=== PATIENT | male | born 1945 | race Caucasian/White ===

== ENCOUNTER 2019-06-12 14:37 | Inpatient (IN) | payer MEDICARE, OTHER, SELFPAY ==
[2019-06-12] VITALS (21 sets, daily range): BP systolic 118–181; BP diastolic 58–97; PULSE 58–96; RESP 16–27; TEMP 36.3–37; O2SAT 93–100; BMI 27.1; BMI 26.5
--- NOTE | ~2019-06-12 | XR_ITS ---
EXAMINATION: XR chest 2V DATE: 06/12/2019 15:05 INDICATION: Chest pain. TECHNIQUE: Frontal and lateral views of the chest were obtained. COMPARISON: None. FINDINGS: The chest demonstrates clear lungs without pneumonia, pleural effusion, or pneumothorax. Th e heart size is normal. IMPRESSION: 1. No acute cardiopulmonary disease. Reviewed, dictated and finalized at location A. ESS TRACK VEHICLE SUPERVISOR
--- NOTE | 2019-06-12 14:45 | ECG_ITS ---
Measurements Intervals [place] Rate: 79 P: 33 GA: 209 QRS: -36 QRSD: 99 T: 127 QT: 364 QTc: 420 Interpretive Statements SINUS RHYTHM LEFT AXIS DEVIATION LEFT VENTRICULAR HYPERTROPHY AND ST-T CHANGE DELAYED PRECORDIAL R/S TRANSITION BASELINE WANDER- I, III BORDERLINE ECG Electronically Signed On 06-12-2019 14:55:34 [employer]UMBER TALLIER by Sukhjinder Jara D.O.
[2019-06-12 14:54] LABS: Basophils Percent Auto 0.5 % (0.2-1.2); Eosinophils Absolute Auto 0.2 K/mm3 (0-0.3); Eosinophils Percent Auto 2.3 % (0-4.4); Hematocrit 46.9 % (42.0-52.0); Hemoglobin 15.7 g/dL (14.0-18.0); Immature Granulocyte Absolute 0.03 K/mm3 (0.00-0.031); Immature Granulocyte Percent A 0.4 % (0-0.5); Lymphocytes Absolute Auto 1.46 K/mm3 (0.9-3.2); Lymphocytes Percent Auto 18.5 % (18.3-44.2); Mean Corpuscular HGB Conc 33.5 g/dl (32-36); Mean Corpuscular Hemoglobin 29.6 pg (26-34); Mean Corpuscular Volume 88.5 fl (80-100); Mean Platelet Volume 10.1 fl (7.4-10.4); Monocytes Absolute Auto 0.9 K/mm3 (0.1-0.6); Monocytes Percent Auto 11.3 % (2.6-8.5); Neutrophils Absolute Auto 5.3 K/mm3 (1.3-6.7); Platelet Count Result 199 k/mm3 (150-375); Red Cell Distribution Width 13.5 % (11.5-14.5); White Blood Count 7.9 K/mm3 (4.5-10.0)
[2019-06-12 15:04] LABS: INR 0.9
[2019-06-12 15:07] LABS: Blood Urea Nitrogen 19 mg/dL (9-20); Calcium 9.7 mg/dL (8.4-10.2); Carbon Dioxide 25 mmol/L (22-30); Chloride 101 mmol/L (98-107); Estimated CRCL calculation 46 ml/min; Estimated Glomerular Filt Rate > 60; Glucose 160 mg/dL (75-110); Potassium 3.8 mmol/L (3.4-5.0); Sodium 139 mmol/L (137-145)
[2019-06-12 15:22] LABS: Troponin I 0.054 ng/mL (0.000-0.034)
--- NOTE | 2019-06-12 15:35 | ED.CHESTPAIN ---
HPI - Chest Pain General Chief Complaint: Chest Pain Stated Complaint: CP Time Seen by Provider: 06/12/19 15:34 Source: patient and RN notes reviewed Mode of arrival: ambulatory Limitations: no limitations History of Present Illness HPI narrative: Pt is a 74 y/o male with a Hx of HLD and HTN, who presents to the ED with c/o constant lt sided chest pain starting yesterday morning. He describes his pain as squeezing, and notes that his pain is alleviated with laying down and resting. Pt states that he was able to walk around his neighborhood with no increase in his pain. He currently rates his CP at 5/10. Pt reports dizziness accompanying his pain, but denies any SOB or other symptoms. He notes that he has no Hx of similar episodes of pain, and denies any PMHx of VA, CVA, or TIA. MD complaint: chest pain Onset (ago): day(s) (1) Timing of current episode: constant Prior episodes: No Pain location: left chest Pain radiation: none Pain scale (0-10): 5 Quality: other (squeezing) Relieving factors: rest Associated symptoms: other (dizziness) Risk Factors Coronary artery disease risk factors: hyperlipidemia and hypertension Related Data Allergies Allergy/AdvReac Type Severity Reaction Status Date / Time loratadine Allergy Unknown Verified 01/24/17 14:50 Review of Systems Review of Systems: All systems reviewed & are unremarkable except as noted in HPI and below Cardiovascular: Cardiovascular: Reports chest pain (lt sided chest pain) Respiratory: Respiratory: Denies dyspnea Neurologic: Reports dizziness PMFSH Past Medical History Medical History HLD (hyperlipidemia) HTN (hypertension) Kidney stones Surgical History Surgical History Hx of eye surgery Family History Family History (Updated 07/31/16 @ 09:51 by DOCTOR UNKNOWN) Father Family history of malignant neoplasm Mother Family history of malignant neoplasm Social History Social History Smoking status: Former smoker Smoking end date: 05/14/72 Alcohol intake: current Comments PCP is Dr. Hunt. Exam Narrative: Exam Narrative: General appearance: Well-developed, well-nourished Skin: Normal color Head: Normocephalic, nontraumatic Eyes: Clear conjunctiva ENT: Oropharynx normal, ears normal, nose normal Neck: Supple, nontender Chest and respiratory: Airway patent, no respiratory distress, no accessory muscle use Heart: Regular rate/rhythm Abdomen: Soft, nontender, no organomegaly, quiet bowel sounds Vascular: Normal peripheral pulses, normal capillary refill. Musculoskeletal: Normal range of motion, nontender back Neurologic: Alert and oriented ?3, DISCOUNT CLERK is normal as tested, no gross motor deficit Course Course Emergency Course: Improving. Currently chest pain is 0 out of 10 after having aspirin, heparin bolus, Lopressor 25 mg orally, nitroglycerin sublingual x3. Patient will be admitted to IMCU, in case of recurrent chest pain probably needs to go to cardiac cath. Consultations Consultation #1: Discussed case with executive compensation analyst, Dr. Mehta. He accepted the pt. Date: 06/12/19 Time: 15:45 Vital Signs Vital signs: Vital Signs Temperature 37.0 C 06/12/19 14:45 Pulse Rate 80 06/12/19 14:45 Respiratory Rate 20 06/12/19 14:45 Blood Pressure 171/78 H 06/12/19 14:45 Pulse Oximetry 96 06/12/19 14:45 Temperature 37.0 C 06/12/19 14:45 Pulse Rate 88 06/12/19 16:31 Respiratory Rate 23 H 06/12/19 16:31 Blood Pressure 118/65 06/12/19 16:31 Pulse Oximetry 94 06/12/19 16:31 MDM - Chest Pain M
[2019-06-12] MEDS: ASPIRIN 81 MG CHEWABLE TABLET 324 MG PO (15:42)
--- NOTE | 2019-06-12 15:59 | PM.CNCAR ---
Assessment and Plan Assessment and plan (1) Non-ST elevation myocardial infarction (NSTEMI): Code(s): I21.4 - Non-ST elevation (NSTEMI) myocardial infarction Status: Acute Assessment and Plan: He has slight elevation of troponin, has history of crescendo angina, indicative of non ST elevation myocardial infarction. Will start aspirin and heparin, blood pressure controlled, if he gets pain-free completely with nitroglycerin and heparin, then will plan cardiac catheterization at later stage otherwise he continued to have active chest pain will plan on doing cardiac catheterization soon. Will get echocardiogram to evaluate current status of left ventricular systolic function, and look for any other structural heart disease. (2) HTN (hypertension): Code(s): I10 - Essential (primary) hypertension Status: Acute Assessment and Plan: Will add metoprolol for better blood pressure control as well as nitroglycerin (3) HLD (hyperlipidemia): Code(s): E78.5 - Hyperlipidemia, unspecified Status: Acute Assessment and Plan: He is on simvastatin will check lipid profile and treat accordingly Thank you for allowing me to participate in this patient's care, I will be following up with you. Please do not hesitate to call me for any other inquiry History of Present Illness History of Present Illness Consult date/time: 06/12/19 15:59 Chief complaint is chest pain. 74-year-old gentleman with history of hypertension, dyslipidemia, and past history of smoking, came to the hospital because of chest pain. He stated he started having heaviness the chest starting yesterday was mostly left-sided pain with radiation to left shoulder. Was not as intense earlier but subsequently as he went to help a friend take care of stuff at home he started having worsening pain since then by the time he arrived to the hospital was having active pain upon my arrival he was given nitroglycerin which is subsequently relieved his pain. EKG showed nonspecific inferior T-wave flattening, and slight ST depression in inferior leads, 1st troponin showed slight elevation. He has history of hypertension for which he stated that he is taking medication, and has history of dyslipidemia for which he takes simvastatin. He had 1 episode of lightheadedness and dizziness along with the chest pain, and 1 episode of diaphoresis. No known history of coronary artery disease, no history of previous myocardial infarction Reason For Visit: CP Review of Systems Constitutional: Constitutional: Reports fatigue, Reports lethargy and Reports weakness Cardiovascular: Cardiovascular: Reports chest pain, Denies pedal edema and Reports lightheadedness Respiratory: Respiratory: Reports dyspnea PMFSH Past Medical History Medical History HLD (hyperlipidemia) HTN (hypertension) Kidney stones Surgical History Surgical History Hx of eye surgery Family History Family History Father Family history of malignant neoplasm Mother Family history of malignant neoplasm Social History Social History Smoking status: Former smoker Smoking end date: 05/14/72 Alcohol intake: current Meds Home Medications and Allergies Home Medications Medication Instructions Recorded Confirmed Type simvastatin 40 mg tablet 40 mg PO DAILY #90 tablet 03/24/19 Rx lisinopril 20 mg tablet 20 mg PO BID #90 tablet 05/01/19 Rx Allergies Allergy/AdvReac Type Severity Reaction Status Date / Time loratadine Allergy Unknown Verified 01/24/17 14:50 Vital Signs Vital Signs - 24 hr 06/12/19 14:45 Temperature 37.0 C Pulse Rate 80 Respiratory Rate 20 Blood Pressure 171/78 H Pulse Oximetry 96 Exam Narrative: Exam Narrative: Awake alert or
[2019-06-12] MEDS: METOPROLOL TARTRATE 50 MG TAB 25 MG PO (16:01)
[2019-06-12] MEDS: NITROGLYCERIN SL 0.4 MG TABLET SUBLINGUAL ×3 (16:02→16:24)
--- NOTE | 2019-06-12 16:09 | PC.NURSE ---
Pt given one ntg, pain was decreased from 5/10 to 3/10.
[2019-06-12] MEDS: HEPARIN SODIUM 5,000 UNITS/ML VIAL 5000 UNITS IV PUSH (16:10)
--- NOTE | 2019-06-12 16:24 | PC.NURSE ---
CP decreased to 1/[address] Costello made aware. v.o. to give 3rd NTG for continuing cp 05/23.
--- NOTE | 2019-06-12 16:47 | PC.NURSE ---
Pt is painfree at present time, after [address] Costello made aware and to bedside to speak with patient.
[2019-06-12 18:03] LABS: Cholesterol 147 mg/dL (0-200); HDL Direct 32 mg/dL; Triglycerides 71 mg/dL (<150); Troponin I 0.064 ng/mL (0.000-0.034)
[2019-06-12 18:13] LABS: LDL Cholesterol Direct 103 mg/dL
--- NOTE | 2019-06-12 18:13 | PC.NURSE ---
Call to IMU, floor unable to take report.
--- NOTE | 2019-06-12 19:58 | ADMGEN ---
This patient, Jose Adair, was admitted to IMU Room 232-01 at 1831. Patient/family oriented to hospital policies and general routines including ID bracelet, bed and alarms, visiting hours, pain management, procedures, bathroom and other care routines, personal items, smoking policy, room service/diet, and visiting hours. Valuables list has been completed. Information on how to activate the Rapid Response Team has been discussed. Patient/Family are encouraged to report perceived risks to care and to ask questions if they do not understand what they are told or what they should do.
[2019-06-12] MEDS: SODIUM CHLORIDE 0.9% IV 500 ML 100 ML IV CONT (21:43)
[2019-06-12 21:47] LABS: Troponin I 0.071 ng/mL (0.000-0.034)
[2019-06-12] MEDS: HEPARIN SODIUM 5,000 UNITS/ML VIAL 4000 UNITS IV PUSH (22:51)
--- NOTE | 2019-06-12 22:51 | PM.IMHP ---
H&P: HPI History of Present Illness Chief complaint: And STEMI Narrative: Jose Adair is a 74 year old male who has a past medical history of hypertension and hyperlipidemia. The patient has had no prior history of any heart disease. The patient stated that on Sunday he had this left shoulder pain and went to the chiropractor and felt very relaxed after that. Then the patient noticed that he had some left upper chest pain after he went to the chiropractor. The patient stated with activity had chest pain and would be relieved with rest. He had no shortness of breath or diaphoresis. Did not radiate down his arm. He is not diabetic. patient's troponins were 0.054, 0.064, 0.071. Respectively. Patient was given IV bolus of heparin in the emergency room. Lopressor in the emergency room as well as an aspirin. Patient still continues to have some mild chest pressure. EKG was read as left axis deviation. Baseline wander lead 1 and 3. Borderline EKG. Date of service 06/12/2019 Review of Systems Review of Systems: Narrative: No fever no chills no cough. No shortness of breath. Chest pain is relieved with rest. All systems reviewed & are unremarkable except as noted in HPI and below Constitutional: Constitutional: Reports as per HPI and Reports no additional constitutional complaints Eyes: Eyes: Reports as per HPI and Reports no additional eye complaints Comments: Retinal transplant both eyes ENT: Reports system reviewed and no additional complaints, except as documented and Reports Normal hearing present Cardiovascular: Cardiovascular: Reports no additional cardiovascular complaints Respiratory: Respiratory: Reports no additional respiratory complaints and Reports no additional respiratory complaints Gastrointestinal: Gastrointestinal: Reports as per HPI and Reports no additional gastrointestinal complaints Musculoskeletal: Musculoskeletal: Reports no additional musculoskeletal complaints Integumentary/Breasts: Skin/Breast: Reports system reviewed and no additional complaints, except as docu and Reports as per HPI Neurologic: Reports system reviewed and no additional complaints, except as documented, Reports as per HPI and Reports Normal hearing present Psychiatric: Psychiatric: Reports no additional psychiatric complaints and Reports as per HPI Endocrine: Endocrine: Reports no additional endocrine complaints Hematologic/Lymphatic: Hematologic/Lymphatic: Reports no additional hematologic/lymphatic complaints Allergic/Immunologic: Allergic/Immunologic: Reports no additional allergic/immunologic complaints [facility] Past Medical History Medical History (Updated 06/12/19 @ 22:57 by Libertad Mae NP) HLD (hyperlipidemia) HTN (hypertension) Kidney stones 1 was extracted and the other 1 lithotripsy. Surgical History Surgical History (Updated 06/12/19 @ 22:57 by Libertad Mae NP) Cataract extraction status Both eyes Hx of eye surgery History of retinal transplant Family History Family History (Updated 06/12/19 @ 22:57 by Libertad Mae NP) Father Family history of malignant neoplasm Some type of blood cancer Mother Family history of malignant neoplasm Lung cancer Social History Social History (Updated 06/12/19 @ 23:00 by Libertad Mae NP) Social History: Patient lives with his Juana. She is his power materials and corrosion engineer. He desires to be a full code. He has 4 children. He is retired from [employer]. Patient stated he quit smoking in the 70s no alcohol are are street drugs Smoking packs per day: 0.5 Smoking cigarettes per day: 10.0 Years smoked: 10 Smoking pack-years: 5.00 Smoking status: Light tobacco smoker Tobacco type: cigarettes Second hand tobacco smoke exposure: No Smoking end date: 05/14/72 Alcohol intake: current Drinks per week: 1 Substance use: never Substance use type: does not use Living arrangements: with family Occupation/Educat
[2019-06-12] MEDS: HEPARIN SOD/D5W 100 UNITS/ML 25,000 UNITS/250 ML BAG 9 UNITS IV CONT (22:52)
[2019-06-13] VITALS (19 sets, daily range): BP systolic 115–176; BP diastolic 42–82; PULSE 62–91; RESP 16–22; TEMP 36.2–36.8; O2SAT 93–99
--- NOTE | 2019-06-13 | ECHO_ITS ---
Patient Info Name: Jose Adair Age: 74 years : 1945 Gender: Male Ht: 66 in Wt: 166 lbs BSA: 1.89 m2 HR: 70 bpm BP: 115 / 42 mmHg Exam Date: 06/13/2019 11:37 AM Exam Location: [facility] Pulmonary Exam Room: [facility] Patient Status: Inpatient Admit Date: 06/12/2019 Staff Ordering Physician: Rafa Mehta MD Saddle Lining Stitcher: Karen Diaz RDCS Attending Provider: Rosa Coronel PA-C Exam Type: CA echo doppler color flow Study Info Indications - chest pain Complete two-dimensional, color flow and Doppler transthoracic echocardiogram is performed. Summary 1. Technically difficult study with limited views. 2. The mitral valve has thickened leaflets. 3. Grade I diastolic dysfunction of the left ventricle (impaired relaxation pattern). 4. Left ventricular wall thickness is borderline increased. 5. There is trace mitral valve regurgitation. 6. There is mild aortic valve sclerosis. 7. There is trace aortic valve regurgitation. 8. There is mild aortic valve stenosis with a peak velocity of 239 cm/s, mean gradient of 12 mmHg, and aortic valve area of 1.6 cm2. 9. Left ventricular chamber dimension is normal. 10. Left ventricular systolic function is normal with an estimated ejection fraction of 5560.0 %. Left Ventricle Grade I diastolic dysfunction of the left ventricle (impaired relaxation pattern). Left ventricular wall thickness is borderline increased. Left ventricular chamber dimension is normal. Left ventricular systolic function is normal with an estimated ejection fraction of 5560.0 %. Right Ventricle Right ventricle Empty are normal. Right ventricular systolic function is normal. Left Atria Left atrial chamber dimension is normal. Right Atria Right atrial chamber dimension is normal. Aortic Valve There is mild aortic valve sclerosis. Aortic valve is not well visualized. There is trace aortic valve regurgitation. There is mild aortic valve stenosis with a peak velocity of 239 cm/s, mean gradient of 12 mmHg, and aortic valve area of 1.6 cm2. Pulmonic Valve Pulmonary valve is not well visualized. Mitral Valve The mitral valve has thickened leaflets. There is trace mitral valve regurgitation. Tricuspid Valve The tricuspid valve is structurally and functionally normal by two-dimensional, color flow Doppler and Doppler interrogation. Empty pulmonary hypertension, estimated pulmonary arterial systolic pressure is 34 mmHg. Pericardium/Pleural Pericardium is normal in appearance with no evidence for significant pericardial effusion. Left Ventricular Outflow Tract Name Value Normal LVOT 2D LVOT Diameter 2.1 cm LVOT Doppler LVOT Peak Gradient 4 mmHg LVOT Mean Gradient 3 mmHg LVOT VTI 24 cm LVOT VTI/AV VTI Ratio 0.5 LVOT Stroke Volume 82 ml LVOT CO 15.9 l/min LVOT CI 8.4 l/min/m2 Pulmonic Valve
[2019-06-13] MEDS: SODIUM CHLORIDE 0.9% IV 500 ML 100 ML IV CONT (02:37)
[2019-06-13 04:47] LABS: Basophils Absolute Auto 0.1 K/mm3 (0.0-0.1); Basophils Percent Auto 0.6 % (0.2-1.2); Eosinophils Absolute Auto 0.2 K/mm3 (0-0.3); Eosinophils Percent Auto 2.9 % (0-4.4); Hematocrit 45.2 % (42.0-52.0); Hemoglobin 14.8 g/dL (14.0-18.0); Immature Granulocyte Absolute 0.04 K/mm3 (0.00-0.031); Immature Granulocyte Percent A 0.5 % (0-0.5); Lymphocytes Absolute Auto 1.93 K/mm3 (0.9-3.2); Lymphocytes Percent Auto 24.7 % (18.3-44.2); Mean Corpuscular HGB Conc 32.7 g/dl (32-36); Mean Corpuscular Hemoglobin 29.5 pg (26-34); Mean Platelet Volume 10.3 fl (7.4-10.4); Monocytes Percent Auto 12.4 % (2.6-8.5); Neutrophils Absolute Auto 4.6 K/mm3 (1.3-6.7); Neutrophils Percent Auto 58.9 % (45.5-73.1); Platelet Count Result 195 k/mm3 (150-375); Red Blood Count 5.02 M/mm3 (4.6-6.20); Red Cell Distribution Width 13.5 % (11.5-14.5); White Blood Count 7.8 K/mm3 (4.5-10.0)
[2019-06-13 04:59] LABS: Partial Thromboplastin Time 70.2 SECONDS (22.3-36.8)
[2019-06-13 05:10] LABS: Alanine Aminotransferase 27 U/L (4-50); Albumin Level 3.8 g/dL (3.5-5.1); Alkaline Phosphatase 48 U/L (38-126); Aspartate Amino Transferase 21 U/L (17-59); Bilirubin,Total 1.3 mg/dL (0.2-1.3); Blood Urea Nitrogen 19 mg/dL (9-20); Calcium 9.1 mg/dL (8.4-10.2); Carbon Dioxide 27 mmol/L (22-30); Chloride 102 mmol/L (98-107); Cholesterol 138 mg/dL (0-200); Estimated CRCL calculation 42 ml/min; Estimated Glomerular Filt Rate 59; Glucose 112 mg/dL (75-110); HDL Direct 30 mg/dL; Magnesium 1.9 mg/dL (1.6-2.3); Potassium 4.3 mmol/L (3.4-5.0); Sodium 138 mmol/L (137-145); Triglycerides 147 mg/dL (<150)
[2019-06-13 05:20] LABS: LDL Cholesterol Direct 99 mg/dL
[2019-06-13] MEDS: HEPARIN SODIUM 5,000 UNITS/ML VIAL 3000 UNITS IV PUSH (05:45)
--- NOTE | 2019-06-13 07:42 | WPDMODSED ---
Moderate Sedation Note-Pt Data Patient Data Allergies Allergy/AdvReac Type Severity Reaction Status Date / Time loratadine Allergy Unknown Verified 01/24/17 14:50 Home Medications Medication Instructions Recorded Confirmed Type simvastatin 40 mg tablet 40 mg PO DAILY #90 tablet 03/24/19 06/12/19 Rx Allergy Relief (fluticasone) 50 mcg EACHNARE BID 06/12/19 06/12/19 History lisinopril-hydrochlorothiazide 1 tab-cap PO QAM 06/12/19 06/12/19 History prednisolone acetate See Rx Instructions .ROUTE .COMPLEX 06/12/19 06/12/19 History Current Medications: Active Medications Aspirin (Aspirin Chewable) 81 mg PO DAILY@0800 [facility] Fluticasone Propionate (Flonase 0.05% Nasal [place]) 1 spray NASAL BID [facility] Heparin Sodium (Porcine) (Heparin Sodium) 4,000 units IV PUSH PRN PRN PRN Reason: aPTT less than 55 seconds Heparin Sodium (Porcine) (Heparin Sodium) 3,000 units IV PUSH PRN PRN PRN Reason: aPTT 55 - 70 seconds Last Admin: 06/13/19 05:45 Dose: 3,000 units Documented by: Sodium Chloride (Normal Saline Iv) 500 mls @ 100 mls/hr IV CONT .Q5H ANISH Last Infusion: 06/13/19 05:48 Dose: 100 mls/hr Documented by: Heparin Sodium/Dextrose (Heparin Sodium/D5w 100 Units/Ml) 25,000 units in 250 mls @ 11 mls/hr IV CONT .[id number] ANISH; Protocol Last Titration: 06/13/19 05:48 Dose: 1,100 units/hr, 11 mls/hr Documented by: Nitroglycerin (Nitrostat Subl 0.4 Mg (1/150)) 0.4 mg SUBLINGUAL Q5MIN PRN PRN Reason: Chest Pain Last Admin: 06/12/19 16:24 Dose: 0.4 mg Documented by: Ondansetron HCl (Zofran Inj) 4 mg IV PUSH Q4H PRN PRN Reason: Nausea Prednisolone Acetate (Pred Forte) 1 drop EACH EYE Q48H [facility] Simvastatin (Zocor) 40 mg PO DAILY [facility] Sedation/Anesthesia: No previous sedation/anesthesia problems (including family history). [facility] Past Medical History Medical History (Updated 06/12/19 @ 22:57 by Libertad Mae NP) HLD (hyperlipidemia) HTN (hypertension) Kidney stones 1 was extracted and the other 1 lithotripsy. Surgical History Surgical History (Updated 06/12/19 @ 22:57 by Libertad Mae NP) Cataract extraction status Both eyes Hx of eye surgery History of retinal transplant Family History Family History (Updated 06/12/19 @ 22:57 by Libertad Mae NP) Father Family history of malignant neoplasm Some type of blood cancer Mother Family history of malignant neoplasm Lung cancer Social History Social History (Updated 06/12/19 @ 23:00 by Libertad Mae NP) Social History: Patient lives with his Juana. She is his power research attorney. He desires to be a full code. He has 4 children. He is retired from [employer]. Patient stated he quit smoking in the 70s no alcohol are are street drugs Smoking packs per day: 0.5 Smoking cigarettes per day: 10.0 Years smoked: 10 Smoking pack-years: 5.00 Smoking status: Light tobacco smoker Tobacco type: cigarettes Second hand tobacco smoke exposure: No Smoking end date: 05/14/72 Alcohol intake: current Drinks per week: 1 Substance use: never Substance use type: does not use Living arrangements: with family Occupation/Education: retired Gender identity (if verbalized by the patient): Male Spiritual care concerns: No Agree to blood products: Yes Mod Sed Physical Exam Physical Exam Pre Procedural Exam: Normal: Appearance, Eyes, Ears, Nose, Neck, Throat, Airway, Lungs, Heart Size, Heart Rate, Heart Rhythm, Neuro Exam, Abdomen, Liver, Kidneys, Spleen, Breasts, Genitalia, Extremities and Skin Hours since solid foods: 8 Hours since liquid intake: 8 Internal Medicine - PN: Obj Da Vital Signs Vital Signs: Vital Signs - 24 hr 06/12/19 14:45 06/12/19 15:32 06/12/19 15:46 Temperature 37.0 C Pulse Rate 80 77 81 Respiratory Rate 20 26 H 24 H Blood Pressure 171/78 H 181/97 H Pulse Oximetry 96 97 98 06/12/19 16:00 06/12/19 16:01 06/12/19 16:03 Temperature Pulse Rate 78 87 81 Resp
--- NOTE | 2019-06-13 08:09 | PM.PNCARD ---
Progress Note: A&P Assessment and Plan (1) Non-ST elevation myocardial infarction (NSTEMI): Code(s): I21.4 - Non-ST elevation (NSTEMI) myocardial infarction Status: Acute Assessment and Plan: cardiac catheterization done today showed totally occluded RCA with collaterals, severe three-vessel coronary disease with significant lesions in the LAD diagonal left circumflex obtuse marginal. Has normal left ventricular systolic function, he would benefit from coronary bypass surgery, will resume heparin shortly and transferred to [facility] for surgery. (2) HTN (hypertension): Code(s): I10 - Essential (primary) hypertension Status: Acute Assessment and Plan: Will add metoprolol for better blood pressure control as well as nitroglycerin (3) HLD (hyperlipidemia): Code(s): E78.5 - Hyperlipidemia, unspecified Status: Acute Assessment and Plan: He is on simvastatin will check lipid profile and treat accordingly Subjective Date/time seen: 06/13/19 08:09 he feels better today, no more chest pain since he has been started on heparin,. Cardiac catheterization done today showed severe three-vessel coronary disease with totally occluded RCA and normal left ventricular systolic function. He will need to be transferred to [facility] for coronary bypass surgery Exam Narrative: Exam Narrative: Awake alert oriented x3 not in acute distress Neck is supple no obvious JVD, no carotid bruit Chest: Good air entry bilaterally, lungs are clear to auscultation and percussion bilaterally Cardiovascular: Regular rate and rhythm, 2/6 systolic murmur noted left sternal border Abdomen: Soft nontender bowel sounds positive Extremities: No edema has good pulses distally bilaterally Objective Data Vital Signs Vital Signs: Vital Signs - 24 hr 06/12/19 14:45 06/12/19 15:32 06/12/19 15:46 Temperature 37.0 C Pulse Rate 80 77 81 Respiratory Rate 20 26 H 24 H Blood Pressure 171/78 H 181/97 H Pulse Oximetry 96 97 98 06/12/19 16:00 06/12/19 16:01 06/12/19 16:03 Temperature Pulse Rate 78 87 81 Respiratory Rate 27 H 20 18 Blood Pressure 170/78 H 170/78 H Pulse Oximetry 94 97 96 06/12/19 16:10 06/12/19 16:15 06/12/19 16:16 Temperature Pulse Rate 91 93 93 Respiratory Rate 26 H 26 H 25 H Blood Pressure 142/76 H 124/58 L Pulse Oximetry 93 93 06/12/19 16:18 06/12/19 16:31 06/12/19 16:32 Temperature Pulse Rate 96 88 86 Respiratory Rate 22 H 23 H 23 H Blood Pressure 124/58 L 118/65 Pulse Oximetry 94 94 95 06/12/19 16:45 06/12/19 16:46 06/12/19 17:00 Temperature Pulse Rate 73 74 65 Respiratory Rate 16 21 H 18 Blood Pressure 154/78 H Pulse Oximetry 95 97 94 06/12/19 17:01 06/12/19 17:15 06/12/19 17:16 Temperature Pulse Rate 65 61 61 Respiratory Rate 23 H 21 H 21 H Blood Pressure 141/80 H 119/66 Pulse Oximetry 96 93 97 06/12/19 18:38 06/12/19 20:00 06/12/19 22:00 Temperature 36.6 C 36.3 C L Pulse Rate 58 L 60 64 Respiratory Rate 18 20 Blood Pressure 146/64 H 156/63 H Pulse Oximetry 96 100 06/13/19 00:00 06/13/19 02:00 06/13/19 04:00 Temperature 36.3 C L 36.2 C L Pulse Rate 63 65 62 Respiratory Rate 22 H 18 Blood Pressure 155/82 H 115/42 L Pulse Oximetry 98 99 06/13/19 06:00 Temperature Pulse Rate 70 Respiratory Rate Blood Pressure Pulse Oximetry Intake/Output Intake/Output: Intake & Output 06/10/19 06/11/19 06/12/19 06/13/19 23:59 23:59 23:59 23:59 Intake Total 1445 Output Total 1150 Balance 295 Meds/Results Medications: Active Medications Generic Name Dose Route Start Last Admin Trade Name Freq PRN Reason Stop Dose Admin Aspirin 81 mg 06/13/19 08:00 Aspirin Chewable PO DAILY@0800 [facility] Fluticasone Propionate 1 spray 06/13/19 09:00 Flonase 0.05% Nasal [place] NASAL BID [facility] Heparin Sodium (Porcine) 4,000 units 06/12/19 22:37 Heparin Sodium IV P
--- NOTE | 2019-06-13 08:13 | P.PCNCC_ITS ---
Cardiac Cath Procedure Note Date of procedure:: 06/13/19 Performing physician:: Rafa Mehta MD Procedure: 1. Left heart catheterization, selective coronary angiogram. 2. Left ventricular angiogram. 3. Conscious sedation. starting time is 7:50 a.m. ending time is 8:07 a.m. 4. left subclavian artery angiogram with nonselective JOSE angiogram. 5. Femoral artery angiogram. 6. Angio-Seal device for arterial hemostasis Sterile Instrument Technician: Dr. Rafa Mehat Complications: None. Sedation: Conscious sedation, local anesthesia, using 2 mg of Versed said, 25 mcg of fentanyl, and using 1% lidocaine for local anesthesia. Technique: After informed consent was obtained from patient, was brought to the mobile lab technician, put in the mobile lab technician table, prepped and draped in usual sterile fashion. Five Indonesian sheath was inserted into the right common femoral artery, through the sheath 5 Indonesian JL4 catheter inserted, advanced to the left coronary artery, left coronary artery angiogram was obtained. The catheter was exchanged over guidewire into a 5 Indonesian JR4 catheter, advanced to the right coronary artery, right coronary artery angiogram was obtained. the catheter then was pulled to the level of the left subclavian and then selective JOSE angiogram was done to evaluate the JOSE for possible bypass use The catheter then was exchanged over guidewire into this 5 Indonesian pigtail catheter, advanced to left ventricle, left ventricular angiogram was obtained. The catheter then was pulled, the sheath was pulled applying Angio-Seal device for arterial hemostasis. Patient tolerated the procedure no complication, taken from the mobile lab technician to his room in stable condition stable vital signs. Hemodynamics: aortic pressure 124/60 . LV pressure 124/04 with LVEDP of 24 mmHg Angiographic findings: Left main: Medium size artery 25% stenosis. Lad medium size artery showed; multiple areas of severe disease 90%, proximal and mid, 1st diagonal branch had ostial 90% disease Left circumflex artery, medium size artery, showed multiple areas of narrowing including 90%, at the 1st and 2nd obtuse marginal here it seems that the left system is giving collateral to the right which probably is occluded RCA: Dominant vessel, seems to be totally occluded at the proximal portion, but getting filled via collaterals from the left system left subclavian artery angiogram showed mild proximal disease, morocho is patent, with medium-sized LV: Normal size left ventricle with normal left ventricular systolic function. Summary: three-vessel severe coronary artery disease with totally occluded right, and collaterals from the left. Patent MOROCHO and normal left ventricular systolic function Recommendation: with severe three-vessel coronary disease he would need to be set for coronary bypass surgery, will make arrangements for transfer to [facility] for coronary bypass surgery
[2019-06-13] MEDS: SODIUM CHLORIDE 0.9% IV 1,000 ML 125 ML IV CONT (08:30)
[2019-06-13] MEDS: FLUTICASONE PROPIONATE 0.05% NA SPR 16 GM BTL (*BKC) 1 SPRAY NASAL (12:25)
[2019-06-13] MEDS: ASPIRIN 81 MG CHEWABLE TABLET PO (12:26)
[2019-06-13] MEDS: LOSARTAN POTASSIUM 50 MG TABLET PO (12:26)
[2019-06-13] MEDS: SIMVASTATIN 20 MG TABLET 40 MG PO (12:26)
[2019-06-13] MEDS: METOPROLOL TARTRATE 25 MG TABLET PO (12:27)
[2019-06-13 12:29] LABS: Partial Thromboplastin Time 87.4 SECONDS (22.3-36.8)
--- NOTE | 2019-06-13 15:24 | PM.TDS ---
Transfer Discharge Sum: Prov Provider Date of admission: 06/12/19 17:38 Primary care physician: Marylou Hunt MD Admitting clinician: Mckenzie Mireles MD Consults: 06/12/19 17:28 Consult to Physician Routine Comment: Consulting Provider: Rafa Mehta Reason for consultation: NSTEMI Has provider been notified: Yes DS: Diagnosis Admitting Diagnosis Admitting Diagnosis: Non-ST elevation (NSTEMI) myocardial infarction Discharge Diagnosis (1) Non-ST elevation myocardial infarction (NSTEMI): Code(s): I21.4 - Non-ST elevation (NSTEMI) myocardial infarction Status: Acute Assessment and Plan: Date of Service 06/13/19 Mr. Adair is a 74yo M with history of hypertension and hyperlipidemia who presented to the ED for evaluation of left-sided chest pain. He reported he had noticed a constant, persistent pressure-like feeling on the left side of his chest over the last several days to 1 week. He reported the pain radiated to his left shoulder with associated dizziness. He called his primary care provider who instructed him to proceed to the ED. On arrival, serial troponins were mildly elevated at 0.054, 0.064, 0.071 respectively. EKG showed nonspecific inferior T-wave flattening, and slight ST depression in the inferior leads. Cardiology was consulted and he was started on heparin drip. He was seen and evaluated by Dr. Mehta. He underwent cardiac catheterization this morning 06/13/2019 which revealed 3 vessel severe coronary artery disease with totally occluded RCA with collaterals from the left; patent MOROCHO and normal left ventricular systolic function. Dr Mehta has arranged for transfer to [facility] for CABG. He has been started on metoprolol, ASA, and remains on heparin gtt at this time. He is hemodynamically stable for transfer. Echocardiogram performed and report is pending at time of transfer. (2) HTN (hypertension): Code(s): I10 - Essential (primary) hypertension Status: Chronic Assessment and Plan: Patient's home HCTZ-lisinopril was held in light of starting metoprolol. Further recommendations per Dr Mehta. (3) HLD (hyperlipidemia): Code(s): E78.5 - Hyperlipidemia, unspecified Status: Acute Assessment and Plan: Maintained on his home statin therapy. Transfer Discharge Sum: Med Medications Active and Home Medications: Home Medications simvastatin 40 mg tablet 40 mg PO DAILY #90 tablet 03/24/19 [Rx Confirmed 06/12/19] Allergy Relief (fluticasone) 50 mcg EACHNARE BID 06/12/19 [History Confirmed 06/12/19] lisinopril-hydrochlorothiazide 1 tab-cap PO QAM 06/12/19 [History Confirmed 06/12/19] prednisolone acetate See Rx Instructions .ROUTE .COMPLEX 06/12/19 [History Confirmed 06/12/19] Active Medications Aspirin (Aspirin Chewable) 81 mg PO DAILY@0800 [facility] Last Admin: 06/13/19 12:26 Dose: 81 mg Documented by: Fluticasone Propionate (Flonase 0.05% Nasal [place]) 1 spray NASAL BID [facility] Last Admin: 06/13/19 12:25 Dose: 1 spray Documented by: Heparin Sodium (Porcine) (Heparin Sodium) 4,000 units IV PUSH PRN PRN PRN Reason: aPTT less than 55 seconds Heparin Sodium (Porcine) (Heparin Sodium) 3,000 units IV PUSH PRN PRN PRN Reason: aPTT 55 - 70 seconds Last Admin: 06/13/19 05:45 Dose: 3,000 units Documented by: Heparin Sodium/Dextrose (Heparin Sodium/D5w 100 Units/Ml) 25,000 units in 250 mls @ 11 mls/hr IV CONT .[id number] [facility]; Protocol Last Titration: 06/13/19 12:34 Dose: 1,100 units/hr, 11 mls/hr Documented by: Sodium Chloride (Normal Saline Iv) 1,000 mls @ 125 mls/hr IV CONT .Q8H ONE Stop: 06/13/19 16:11 Last Infusion: 06/13/19 12:36 Dose: Infused Documented by: Losartan Potassium (Cozaar) 50 mg PO DAILY [facility] Metoprolol Tartrate (Lopressor) 25 mg PO Q12HR [facility] Nitroglycerin (Nitrostat Subl 0.4 Mg (1/150)) 0.4 mg SUBLINGUAL Q5MIN PRN PRN Reason: Chest Pain Last Admin: 06/12/19 16:24 Dose: 0.4 mg Documented
== END 2019-06-13 16:46 | disposition short-term general hospital (02) | DRG 282 ==
LOC: ANHED 17:31 → ANHIMU 06-13 01:38
PROVIDERS: Family Medicine; Nurse Practitioner; Specialist; Admitting Provider Hospitalist; Emergency Provider Emergency Medicine; PCP Family Medicine; Visit Provider Hospitalist
PROC: 4A023N7 Measurement of Cardiac Sampling and Pressure, Left Heart, Percutaneous Approach (ICD-10-PCS; CPT 93452; principal; 2019-06-13 07:30)
PROC: 4A023N7 Measurement of Cardiac Sampling and Pressure, Left Heart, Percutaneous Approach (ICD-10-PCS; 2019-06-13 07:30)
DX: I21.4 Non-ST elevation (NSTEMI) myocardial infarction (principal); I10 Essential (primary) hypertension; E78.5 Hyperlipidemia, unspecified; Z87.442 Personal history of urinary calculi; I25.10 Atherosclerotic heart disease of native coronary artery without angina pectoris
CPT/HCPCS: 36415; 71046; 80048; 80053; 80061; 83735; 84443; 84484; 85025; 85610; 85730; 93005; 93306; 93458; 96374; 99291; A9270; C1760; C1887; C1894; G0269; J1644; J2250; J3010; J7030; J7040

== ENCOUNTER 2019-07-07 15:20 | Emergency (ER) | payer MEDICARE, OTHER, SELFPAY ==
--- NOTE | ~2019-07-07 | XR_ITS ---
EXAMINATION: XR chest 2V EXAM DATE: 07/07/2019 16:23 INDICATION: Dizziness. Open heart surgery June 16. TECHNIQUE: Frontal and lateral projections of the chest obtained and reviewed. Comparison is made to prior examination from 06/12/2019. FINDINGS: Sternotomy wires are present without findings to suggest sternal dehiscence. The lungs are clear. There are no pleural effusions. Cardiac silhouette is prominent but magnified on this AP te chnique. There is no pneumothorax suspected. There are mild bony degenerative changes. Scattered aortic arterial sclerosis. IMPRESSION: No acute cardiopulmonary findings. Reviewed, dictated and finalized at location B. 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
--- NOTE | 2019-07-07 15:28 | ECG_ITS ---
Measurements Intervals [place] Rate: 74 P: 53 SD: 222 QRS: -14 QRSD: 89 T: 146 QT: 379 QTc: 422 Interpretive Statements SINUS RHYTHM WITH FIRST DEGREE AV BLOCK DELAYED PRECORDIAL R/S TRANSITION LEFT VENTRICULAR HYPERTROPHY AND ST-T CHANGE ST-T WAVE ABNORMALITY IN LATERAL LEADS- CONSIDER ISCHEMIA ABNORMAL ECG Electronically Signed On 07-07-2019 15:43:09 [facility] by Sukhjinder Jara D.O.
[2019-07-07 15:55] VITALS: BP 156/67; PULSE 76; RESP 18; TEMP 37.1; O2SAT 96
[2019-07-07 16:00] VITALS: BP 136/58
--- NOTE | 2019-07-07 16:10 | ED.DIZZY ---
HPI - Dizziness General Chief Complaint: Dizziness Stated Complaint: lightheaded Time Seen by Provider: 07/07/19 16:09 Source: patient and RN notes reviewed Mode of arrival: other Limitations: no limitations History of Present Illness HPI Narrative: Pt is a 74 y/o male who presents to the ED with c/o dizziness that began this morning. Pt states that his sx went away and then came back again this afternoon. He states that both times his sx occurred while he was sitting and only lasted a couple of minutes. Pt states that he felt like he was not in equilibrium and he states that if he stood up he thought he was going to 'lose his bearings.' Pt has a hx of and NSTEMI and CABG x4 with his last operation on 06/16/2019 at [facility] by Dr. Da Silva. Pt had a follow up appointment on 07/01/19 and has an another appointment tomorrow at 9 AM. Pt reports resolved clamminess and resolved lightheadedness, but denies cough, fever, N/V/D, bilateral foot swelling, tinnitus, and vision changes. MD elicited complaint: dizziness Onset (ago): hour(s) Timing: episodic Description: sense of movement Context: at rest Associated symptoms: other (lightheadedness (resolved), clamminess (resovled)) Related Data Home Medications Medication Instructions Recorded Confirmed prednisolone acetate See Rx Instructions .ROUTE .COMPLEX 06/12/19 06/12/19 aspirin 81 mg tablet,delayed 81 mg PO DAILY 07/03/19 release atorvastatin 40 mg tablet 40 mg PO DAILY 07/03/19 blood sugar diagnostic #10 each 07/03/19 fluticasone propionate 50 2 spray NASAL DAILY 07/03/19 07/03/19 mcg/actuation nasal spray,suspension hydrocodone 5 mg-acetaminophen 325 1 tablet PO Q6H PRN 07/03/19 mg tablet iron-vit B cplx-liver extract each IM 07/03/19 lisinopril 20 1 tablet PO DAILY 07/03/19 07/03/19 mg-hydrochlorothiazide 12.5 mg tablet metoprolol tartrate 50 mg tablet 50 mg PO Q12H 07/03/19 Allergies Allergy/AdvReac Type Severity Reaction Status Date / Time loratadine Allergy Unknown Unknown Unverified 07/07/19 16:31 DECONGESTANT AdvReac Other Uncoded 07/07/19 16:32 Review of Systems Review of Systems: All systems reviewed & are unremarkable except as noted in HPI and below Constitutional: Constitutional: Denies fever(s) Eyes: Eyes: Denies change in vision ENT: Denies tinnitus Cardiovascular: Cardiovascular: Denies pedal edema, Reports lightheadedness ((resolved)) and Reports other (clamminess (resolved)) Respiratory: Respiratory: Denies cough Gastrointestinal: Gastrointestinal: Denies diarrhea, Denies nausea and Denies vomiting Neurologic: Reports dizziness ((resolved)) [facility] Past Medical History Medical History (Updated 07/07/19 @ 18:14 by Ovi Matthews MD) HLD (hyperlipidemia) HTN (hypertension) Kidney stones 1 was extracted and the other 1 lithotripsy. Non-ST elevation myocardial infarction (NSTEMI) (~06/2019) Prediabetes Seasonal allergies Surgical History Surgical History (Updated 07/07/19 @ 16:32 by Berna Tipton) Cataract extraction status Both eyes Hx of eye surgery History of retinal transplant S/P CABG x 4 (~06/2019) At [facility], last operation was 06/16/19 Family History Family History (Updated 06/12/19 @ 22:57 by Libertad Mae NP) Father Family history of malignant neoplasm Some type of blood cancer Mother Family history of malignant neoplasm Lung cancer Social History Social History (Updated 06/12/19 @ 23:00 by Libertad Mae NP) Social History: Patient lives with his Juana. She is his power medical device. He desires to be a full code. He has 4 children. He is retired from [employer]. Patient stated he quit smoking in the 70s no alcohol are are street drugs Smoking packs per day: 0.5 Smoking cigarettes per day: 10.0 Years smoked: 10 Smoking pack-years: 5.00 Smoking status: Light tobacco smoker Tobacco type: cigarettes Second hand tobac
[2019-07-07 16:12] VITALS: BP 131/67; BP 147/67
[2019-07-07 16:12] LABS: Basophils Percent Auto 0.5 % (0.2-1.2); Eosinophils Absolute Auto 0.4 K/mm3 (0-0.3); Eosinophils Percent Auto 4.7 % (0-4.4); Hematocrit 37.8 % (42.0-52.0); Hemoglobin 11.7 g/dL (14.0-18.0); Immature Granulocyte Absolute 0.05 K/mm3 (0.00-0.031); Immature Granulocyte Percent A 0.6 % (0-0.5); Lymphocytes Absolute Auto 1.03 K/mm3 (0.9-3.2); Lymphocytes Percent Auto 13.4 % (18.3-44.2); Mean Corpuscular Hemoglobin 28.4 pg (26-34); Mean Corpuscular Volume 91.7 fl (80-100); Mean Platelet Volume 9.8 fl (7.4-10.4); Monocytes Absolute Auto 0.7 K/mm3 (0.1-0.6); Neutrophils Absolute Auto 5.5 K/mm3 (1.3-6.7); Neutrophils Percent Auto 71.8 % (45.5-73.1); Platelet Count Result 487 k/mm3 (150-375); Red Blood Count 4.12 M/mm3 (4.6-6.20); Red Cell Distribution Width 14.4 % (11.5-14.5); White Blood Count 7.7 K/mm3 (4.5-10.0)
[2019-07-07 16:21] LABS: INR 1.1; Prothrombin Time 13.5 Seconds (11.1-14.7)
[2019-07-07 16:22] LABS: Partial Thromboplastin Time 29.4 SECONDS (22.3-36.8)
[2019-07-07 16:30] VITALS: BP 127/63; PULSE 78; RESP 16; O2SAT 98
[2019-07-07 16:47] LABS: Blood Urea Nitrogen 22 mg/dL (9-20); Calcium 9.3 mg/dL (8.4-10.2); Carbon Dioxide 27 mmol/L (22-30); Chloride 97 mmol/L (98-107); Estimated CRCL calculation 46 ml/min; Estimated Glomerular Filt Rate > 60; Glucose 142 mg/dL (75-110); Lipase 112 U/L (23-300); Potassium 4.5 mmol/L (3.4-5.0); Sodium 137 mmol/L (137-145)
[2019-07-07 16:59] LABS: NT Pro B Type Natriuretic Pept 1110 PG/ML (5-100); Troponin I < 0.012 ng/mL (0.000-0.034)
[2019-07-07 17:15] VITALS: BP 118/60; PULSE 80; RESP 16; O2SAT 98
[2019-07-07 17:40] LABS: Add Urine Microscopic? NO; Appearance Urine Clear (Clear); Bilirubin Urine Negative (Negative); Blood Urine Negative (Negative); Color Urine Yellow (Yellow); Glucose Urine UA Negative (Negative); Ketones Urine Negative (Negative); Leukocyte Esterase Ur Negative LEU/UL (Negative); Nitrate Urine Negative (Negative); Protein Urine Negative (Negative); Specific Grav Ur 1.018 (1.001-1.035); Urobilinogen Urine Negative mg/dL (<2.0)
[2019-07-07 18:25] VITALS: BP 134/70; PULSE 80; RESP 18; O2SAT 98
== END 2019-07-07 18:25 | disposition home or self-care (01) ==
PROVIDERS: Emergency Medicine Emergency Medical Services; Emergency Provider Emergency Medicine; PCP Family Medicine
DX: R42 Dizziness and giddiness (principal); E78.5 Hyperlipidemia, unspecified; I10 Essential (primary) hypertension; Z87.442 Personal history of urinary calculi; I25.2 Old myocardial infarction; R73.03 Prediabetes; Z79.82 Long term (current) use of aspirin; Z98.42 Cataract extraction status, left eye; Z98.41 Cataract extraction status, right eye; Z95.1 Presence of aortocoronary bypass graft; I25.10 Atherosclerotic heart disease of native coronary artery without angina pectoris; Z87.891 Personal history of nicotine dependence; I44.0 Atrioventricular block, first degree
CPT/HCPCS: 36415; 71046; 80048; 81003; 83690; 83880; 84484; 85025; 85610; 85730; 93005; 99284

== ENCOUNTER 2020-02-12 13:30 | Outpatient (RCR) | payer MEDICARE, OTHER, SELFPAY ==
[2019-11-21 13:53] VITALS: PULSE 59
== END 2020-02-12 19:00 | disposition home or self-care (01) ==
LOC: ANHCPREHAB 13:30
PROVIDERS: PCP Family Medicine; Visit Provider Internal Medicine Cardiovascular Disease
DX: Z95.1 Presence of aortocoronary bypass graft (principal); I25.2 Old myocardial infarction
CPT/HCPCS: 93798

== ENCOUNTER 2021-12-05 13:14 | Emergency (ER) | payer MEDICARE, OTHER, SELFPAY ==
[2021-12-05 13:24] VITALS: BP 169/87; PULSE 97; RESP 15; TEMP 37.7; O2SAT 96
--- NOTE | 2021-12-05 14:00 | ED.URI ---
HPI - URI/Sore Throat General Chief Complaint: Upper Respiratory Infection Stated Complaint: uri Time Seen by Provider: 12/05/21 13:49 Source: patient Mode of arrival: ambulatory Limitations: no limitations History of Present Illness HPI Narrative: Patient presents today complaining of postnasal drip and mild cough since last night. Denies sore throat, known fever, nasal congestion. He has tried no medication for symptoms prior to arrival. Reports he was exposed to somebody with COVID-19 yesterday. He did a home COVID-19 test yesterday that was negative. History of CABG. Related Data Home Medications Medication Instructions Recorded Confirmed prednisolone acetate 1 % eye See Rx Instructions .Route .COMPLEX 06/12/19 12/05/21 drops,suspension aspirin 81 mg tablet,delayed 81 mg PO DAILY 07/03/19 12/05/21 release (Adult Low Dose Aspirin) atorvastatin 40 mg tablet 80 mg PO DAILY 06/30/21 12/05/21 metoprolol succinate 50 mg 50 mg PO DAILY 12/05/21 12/05/21 tablet,extended release 24 hr psyllium 1 packet PO DAILY 12/05/21 12/05/21 Allergies Allergy/AdvReac Type Severity Reaction Status Date / Time loratadine Allergy Unknown Unknown Verified 12/05/21 13:29 DECONGESTANT AdvReac Other Uncoded 12/05/21 13:29 Review of Systems Review of Systems: CONSTITUTIONAL: Denies body aches, fever, chills, or sweats. EYES: Denies visual changes, redness, or discharge. ENT: Denies rhinorrhea, congestion, sore throat, or otalgia.+ Postnasal CARDIOVASCULAR: Denies chest pain, palpitations, or edema. RESPIRATORY: Denies dyspnea.+ Cough GASTROINTESTINAL: Denies abdominal pain, nausea, vomiting, or diarrhea. GENITOURINARY: Denies dysuria or hematuria. SKIN: Denies rash, itching, or wounds. MUSCULOSKELETAL: Denies back pain, joint pain, or myalgia. NEUROLOGIC: Denies headache, numbness, tingling, or weakness. PSYCH: Denies depression or anxiety. 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 She is his power trial attorney. He desires to be a full code. He has 4 children. He is retired from [employer]. Patient stated he quit smoking in the 70s no alcohol are are street drugs Smoking packs per day: 0.5 Smoking cigarettes per day: 10.0 Years smoked: 9 Smoking pack-years: 4.50 Smoking status: Never smoker Tobacco type: cigarettes Second hand tobacco smoke exposure: No Smoking end date: 05/14/73 Alcohol intake: current Drinks per week: 1 Substance use: never Substance use type: does not use Gender identity (if verbalized by the patient): Male Sexual Orientation (if Verbalized by the Patient): Straight or Heterosexual Spiritual care concerns: No Agree to blood products: Yes Comments At time of signature, I have reviewed and agree with nursing past medical, surgical, social and family history unless otherwise noted. Please see nursing chart for further information. There is no relevant family history pertinent to the presenting co
== END 2021-12-05 14:37 | disposition home or self-care (01) ==
PROVIDERS: Emergency Provider Nurse Practitioner; PCP Nurse Practitioner Family
DX: U07.1 COVID-19 (principal); Z87.891 Personal history of nicotine dependence; I25.10 Atherosclerotic heart disease of native coronary artery without angina pectoris; Z95.1 Presence of aortocoronary bypass graft; E78.5 Hyperlipidemia, unspecified; I10 Essential (primary) hypertension; I25.2 Old myocardial infarction; R73.03 Prediabetes; Z98.42 Cataract extraction status, left eye; Z98.41 Cataract extraction status, right eye
CPT/HCPCS: 87426; 99213; C9803; G0463

== ENCOUNTER 2024-06-19 00:32 | Day surgery (SDC) | payer MEDICARE, SELFPAY ==
[2024-06-10 15:06] VITALS: BMI 25.9
--- OUTSIDE RECORDS SUMMARY | 2024-06-19 00:36 | XMS_ITS | Data Portability ---
Author Organization [facility] OFFICE Address [address] [place] [address] Care Team Providers Care Type Photography Supervisor Name Role Phone ACOSTA FERNANDEZ Primary Care Provider Assessment Encounter Date Assessment Date Assessment LastModified by Organization Details LastModified Time 06/28/2021 06/28/2021 Discussed with patient findings, diagnosis, and prognosis. Discussed evaluation and treatment options including risks and benefits with patient, and patient expressed understanding. The following interventions were recommended: heart healthy low-fat, low-sodium diet, continue regular exercise, maintain appropriate weight, continue current medications, and medical follow-up as noted. [email or web address] Not available 06/28/2021 11:50:56 09/07/2021 09/07/2021 Discussed with patient findings, diagnosis, and prognosis. Discussed evaluation and treatment options including risks and benefits with patient, and patient expressed understanding. The following interventions were recommended: heart healthy low-fat, low-sodium diet, continue regular exercise, maintain appropriate weight, continue current medications, and medical follow-up as noted. Not available 09/07/2021 14:50:03 03/08/2022 03/08/2022 Discussed with patient findings, diagnosis, and prognosis. Discussed evaluation and treatment options including risks and benefits with patient, and patient expressed understanding. The following interventions were recommended: heart healthy low-fat, low-sodium diet, continue regular exercise, maintain appropriate weight, continue current medications, and medical follow-up as noted. [email or web address] Not available 03/08/2022 11:55:10 09/06/2022 09/06/2022 Discussed with patient findings, diagnosis, and prognosis. Discussed evaluation and treatment options including risks and benefits with patient, and patient expressed understanding. The following interventions were recommended: heart healthy low-fat, low-sodium diet, continue regular exercise, maintain appropriate weight, continue current medications, and medical follow-up as noted. [email or web address] Not available 09/06/2022 11:40:15 10/02/2022 10/02/2022 Discussed with patient findings, diagnosis, and prognosis. Discussed evaluation and treatment options including risks and benefits with patient, and patient expressed understanding. The following interventions were recommended: heart healthy low-fat, low-sodium diet, continue regular exercise, maintain appropriate weight, continue current medications, and medical follow-up as noted. [email or web address] Not available 10/02/2022 16:00:58 Plan of Treatment Reminders Order Date Submit Date Provider Last Modified By Organization Details Last Modified Time Details Appointments None recorded. Lab None recorded. Referral None recorded. Procedures None recorded. Surgeries None recorded. Imaging electrocard iogram 2021 022 [email or web address] Not available 11:12:47 electrocard iogram 2021 022 FRANCES Not available 10:27:13 electrocard iogram 2021 022 FRANCES Not available 16:19:24 electrocard iogram 2022 023 FRANCES Not available 3 12:07:51 electrocard iogram 2022 023 [email or web address] Not available 3 08:16:47 Medication Orders rosuvastati n 40 mg tablet 2021 022 FRANCES [id number] [facility], [address] [place], [address], 15:15:06 Patient TargetsNo targets recorded. Patient Instructions Encounter Date Encounter Id Patient Instructions Last Modified By Organization Details Last Modified Time 06/28/2021 [id number] chest pain: care instructions Not available 06/28/2021 11:58:16 dizziness: care instructions [email or web address] Not available 06/28/2021 11:58:16 high blood pressure: care instructions [email or web address] Not available 06/28/2021 11:58:16 learning about high blood pressure [email or web address] Not available 06/28/2021 11:58:16 aortic valve stenosis: care instructions [email or web address] Not available 06/28/2021 11:58:16 high cholesterol : care instructions [email or web address] Not available 06/28/2021 11:58:16 09/07/2021 [id number] chest pain: care instructions [email or web address] Not available 09/07/2021 14:57:12 dizziness: care instructions Not available 09/07/2021 14:57:12 high blood pressure: care instructions [email or web address] Not available 09/07/2021 14:57:12 learning about high blood pressure [email or web address] Not available 09/07/2021 14:57:12 aortic valve stenosis: care instructions Not available 09/07/2021 14:57:12 high cholesterol : care instructions [email or web address] Not available 09/07/2021 14:57:12 03/08/2022 [id number] chest pain: care instructions [email or web address] Not available 03/08/2022 15:15:03 dizziness: care instructions [email or web address] Not available 03/08/2022 15:15:03 high blood pressure: care instructions [email or web address] Not available 03/08/2022 15:15:03 learning about high blood pressure [email or web address] Not available 03/08/2022 15:15:03 aortic valve stenosis: care instructions [email or web address] Not available 03/08/2022 15:15:03 high cholesterol : care instructions Not available 03/08/2022 15:15:03 09/06/2022 [id number] chest pain: care instructions [email or web address] Not available 09/06/2022 11:44:37 dizziness: care instructions [email or web address] Not available 09/06/2022 11:44:37 high blood pressure: care instructions [email or web address] Not available 09/06/2022 11:44:38 learning about high blood pressure [email or web address] Not available 09/06/2022 11:44:38 aortic valve stenosis: care instructions [email or web address] Not available 09/06/2022 11:44:38 high cholesterol : care instructions Not available 09/06/2022 11:44:37 10/02/2022 [id number] chest pain: care instructions [email or web address] Not available 10/02/2022 16:07:16 dizziness: care instructions [email or web address] Not available 10/02/2022 16:07:16 high blood pressure: care instructions [email or web address] Not available 10/02/2022 16:07:16 learning about high blood pressure [email or web address] Not available 10/02/2022 16:07:16 aortic valve stenosis: care instructions [email or web address] Not available 10/02/2022 16:07:16 high cholesterol : care instructions [email or web address] Not available 10/02/2022 16:07:16 Reason for Referral None Reported. Results Created Date Observation Date Name Description Value Unit Range Abnormal Flag Note LastModifiedBy Organization Detail LastModifiedTime 06/28/19 22 06/28/2021 elect rocar diogr am No observ ation record ed. esto Rafa Chamberlain0 [facility] [address], [place], [address], 09/01/2021 17:22:58 07/20/19 22 07/13/2021 , [facility] ardio gram No observ ation record ed. [email or web address] Not Available 2021 09:48:36 09/08/1909/13/2021 elect rocar diogr am No observ ation record ed. [email or web address] Rafa Mehta MD [address] [facility] [address], [place], [address], 09/13/2021 10:27:13 09/09/19 22 07/20/2021 exerc ise stres s test No observ ation record ed. [email or web address] Not Available 2021 09:31:08 03/08/20 22 03/08/2022 elect rocar diogr am No observ ation record ed. [email or web address] Rafa Chamberlain0 [facility] [address], [place], [address], 03/08/2022 16:19:24 03/09/20 22 03/08/2022 elect rocar diogr am No observ ation record ed. [email or web address] Not Available 2021 13:43:19 09/07/19 23 09/06/2022 elect rocar diogr am No observ ation record ed. [email or web address] Rafa Mehta MD [address] [facility] [address], [place], [address], 09/06/2022 12:07:51 09/08/1909/06/2022 elect rocar diogr am No observ ation record ed. [email or web address] Not Available 2022 10:40:34 09/28/1909/25/2022 , [facility] ardio gram No observ ation record ed. [email or web address] Not Available 2022 13:59:13 10/03/19 23 10/03/2022 elect rocar diogr am No observ ation record ed. [email or web address] Not Available 2022 11:07:00 Result Notes Documentation Provider Name and Address Organization Details Recorded Time Cbc W/ Diff : 12/29/21:WBC 6.2,RBC 5.57,Hgb 16.5,HCT 49.7,PLT 176. Walker albert [facility] [place] 01/05/2022 18:43:49 Lipid Panel, Blood : 12/29/21:Na 139,K 4.6,CL 100,CO2 24,GLU 118,BUN 23,Cr 1.27,ALT 16,AST 24. 12/29/21:TC 117,TG 110,HDL 34,LDL 63. Walker albert [facility] [place] 01/05/2022 18:45:59 Lipid Panel, Blood : 08/30/22:Na 142,K 4.8,Cl 104,CO2 25,Glu 114,BUN 21,Cr 1.41,AST 18,ALT 24,CK ,TSH 1.850,Mg 2.0. 08/30/22:TC 102,TG 98,LDL 52,HDL 31. 08/30/22:WBC 6.5,RBC 5.28,Hgb 15.4,HCT 46.3,PLT 172. Walker albert [facility] 09/03/2022 19:56:10 Problems Name Problem SNOMED Code Status Onset Date Resolution Date Notes Provider Name and Address Organization Details Recorded Time Hyperlipi demia 81765752 Active 2019 Not Available [facility] 2 07:50:07 Essential hypertens ion 21121142 Active 2019 Not Available [facility] 2 07:50:07 Kidney stone 84686122 Active 2019 Not Available [facility] 2 07:50:07 Acute non-ST segment elevation myocardia l infarctio n 989991081 Active 2019 Not Available [facility] 2 07:50:07 Chest pain 55973242 Active 2019 Not Available [facility] 2 07:50:07 Coronary arteriosc lerosis 53631961 Active 2019 [facility] 06/12/2019 Three vessel sever CARD with totally occluded right, and collateral s from the left. Patent MOROCHO and normal LVSF Not Available [facility] 2 07:50:07 Aortic valve stenosis 98737759 Active 2019 Not Available [facility] 2 07:50:07 Dizziness 529264104 Active 2019 Not Available [facility] 2 07:50:07 Problem Notes None recorded. Procedures Surgical History Date Name Laterality Status Provider Name and Address Organization Details Recorded Time extraction of cataract completed Walker Anton [facility] 06/16/2019 17:21:54 Imaging Results Imaging Date Name Status LastModified by Organization Details LastModified Time 06/28/2021 electrocardiogram completed esto Rafa Chamberlain0 [facility] [address], [place], [address], 09/01/2021 17:22:58 07/13/2021 US, echocardiogram completed [facility] Inform ation not available 07/19/2021 09:48:36 09/13/2021 electrocardiogram completed rogerseAlexandria Chamberlain0 [facility] [address], [place], [address], 09/13/2021 10:27:13 07/20/2021 exercise stress test completed [facility] Info rmation not available 09/08/2021 09:31:08 03/08/2022 electrocardiogram completed [email or web address] Rafa Barrow MD [address] [facility] [address], [place], [address], 03/08/2022 16:19:24 03/08/2022 electrocardiogram completed Informa tion not available 03/09/2022 13:43:19 09/06/2022 electrocardiogram completed [email or web address] Rafa Barrow MD [address] [facility] [address], [place], [address], 09/06/2022 12:07:51 09/06/2022 electrocardiogram completed Informa tion not available 09/07/2022 10:40:34 09/25/2022 US, echocardiogram completed Inform ation not available 09/27/2022 13:59:13 10/03/2022 electrocardiogram completed Informa tion not available 10/03/2022 11:07:00 Procedure Notes None recorded. Medical Equipment None Reported. Allergies Allergen ID Allergen Name Allergen Category Reaction Reaction Severity Criticality Documentation Date Start Date Code Code System Note Provider Name and Address Organization Details Recorded Time 9534 loratadin e medicatio n Not available Not available Not available 06/16/2019 45174 RxNorm Walker Anton [facility] MD - [facility] 0 17:19:31 Medications Name Sig Start Date Stop Date Status Note LastModified by Organization Details LastModified Time atorvasta tin 40 mg tablet TAKE 1 TABLET BY MOUTH EVERYDAY AT BEDTIME 06/28 completed Not Available Not Available Not Available atorvasta tin 80 mg tablet TAKE 1 TABLET BY MOUTH AT BEDTIME 03/08 completed Not Available Not Available Not Available lisinopri l 20 mg-hydroc hlorothia zide 12.5 mg tablet TAKE 1 TABLET BY MOUTH EVERY DAY active Not Available Not Available No t Available metoprolo l succinate ER 50 mg tablet,ex tended release 24 hr TAKE 1 TABLET BY MOUTH EVERY DAY 2022 active Not Available Not Available Not Avai lable hydrocodo ne 5 mg-acetam inophen 325 mg tablet 2 tablets every 6 hourly 08/26 completed pt is not taking this medicati on 11/04/19 20 sm Not Available Not Available Not Available sildenafi l 25 mg tablet TAKE 1 TO 2 TABLETS BY MOUTH ONCE DAILY NEEDED FOR SEXUAL ACTIVITY . ADMINIST ER 30 MINUTES TO 4 HOURS BEFORE ACTIVITY . 06/28 completed Not Available Not Available Not Available simvastat in 40 mg tablet Take 1 tablet every day by oral route. 07/01 completed pt is no more on this medicati on 07/01/19 20 sm Not Available Not Available Not Available prednisol one acetate 1 % eye drops,nydia pension INSTILL ONE DROP INTO BOTH EYES ONCE A DAY active Not Available Not Available No t Available metoprolo l tartrate 50 mg tablet TAKE ONE TABLET BY MOUTH TWICE A DAY 10/26 completed Not Available Not Available Not Available lisinopri l 10 mg-hydroc hlorothia zide 12.5 mg tablet Take 1 tablet every day by oral route. 09/29 completed Not Available Not Available Not Available fluticaso ne propionat e 50 mcg/actua tion nasal spray,nydia pension ADMINIST ER 2 SPRAYS INTO EACH NOSTRIL DAILY NEEDED FOR NASAL CONGESTI ON active Not Available Not Available No t Available Pneumovax -23 25 mcg/0.5 mL injection syringe PHARMACY ADMINIST ERED 08/26 completed Not Available Not Available Not Available rosuvasta tin 40 mg tablet TAKE 1 TABLET BY MOUTH EVERYDAY AT BEDTIME 2022 active Not Available Not Available Not Avai lable tadalafil 10 mg tablet TAKE 1 TABLET BY MOUTH ONCE DAILY 30 MINUTES BEFORE SEXUAL ACTIVITY NEEDED. MAX OF ONE TABLET IN 24 HOURS active Not Available Not Available No t Available senna 50 mg once a day 09/07 completed Not Available Not Available Not Available lisinopri l-hydroch lorothiaz rose qd 06/21 completed Not Available Not Available Not Available Metamucil t1 daily active Not Available Not A vailable Not Available Fetinic 08/26 completed Pt is no more on this mdicatio n Not Available Not Available Not Available Adult Aspirin Regimen 81 mg tablet,de layed release Take 1 tablet every day by oral route. active Not Available Not Available No t Available Fluzone Quad (PF) 60 mcg (15 mcg x 4)/0.5 mL IM syringe PHARMACY ADMINIST PROSPER 08/26 completed Not Available Not Available Not Available Vitals Date Recorded Body height Body mass index (BMI) Body weight Heart rate Oxygen saturation Oxygen saturation in Arterial blood by Pulse oximetry Systolic blood pressure Diastolic blood pressure Provider Name and Address Organization Details Last Updated DateTime 2 167.64 cm 25 kg/m2 17782.8 2 g 63 /min 98 % 98 % 112 mm[Hg] 64 mm[Hg] Sherin Marquez [facility] 2 11:01:58 Date Recorded Body height Body mass index (BMI) Body weight Heart rate Oxygen saturation Oxygen saturation in Arterial blood by Pulse oximetry Systolic blood pressure Diastolic blood pressure Provider Name and Address Organization Details Last Updated DateTime 2 167.64 cm 25.7 kg/m2 30195.1 9 g 62 /min 97 % 97 % 122 mm[Hg] 74 mm[Hg] Diaz Dolan [facility] 2 14:13:00 Date Recorded Body height Body mass index (BMI) Body weight Heart rate Respiratory rate Oxygen saturation Oxygen saturation in Arterial blood by Pulse oximetry Systolic blood pressure Diastolic blood pressure Provider Name and Address Organization Details Last Updated DateTime 2 167.64 cm 26 kg/m2 84862.3 7 g 61 /min 16 /min 98 % 98 % 116 mm[Hg] 80 mm[Hg] Diaz Dolan [facility] 2 14:26:33 Date Recorded Body height Body mass index (BMI) Body weight Heart rate Respiratory rate Oxygen saturation Oxygen saturation in Arterial blood by Pulse oximetry Systolic blood pressure Diastolic blood pressure Provider Name and Address Organization Details Last Updated DateTime 3 167.64 cm 26.8 kg/m2 50823.3 3 g 67 /min 16 /min 97 % 97 % 122 mm[Hg] 74 mm[Hg] Diaz Dolan [facility] 3 10:51:37 Date Recorded Body height Body mass index (BMI) Body weight Heart rate Oxygen saturation Oxygen saturation in Arterial blood by Pulse oximetry Systolic blood pressure Diastolic blood pressure Provider Name and Address Organization Details Last Updated DateTime 3 167.64 cm 25.8 kg/m2 08204.7 8 g 67 /min 97 % 97 % 130 mm[Hg] 70 mm[Hg] Anne Ruby [facility] [place] 3 14:58:01 Social History Question Answer Notes LastModified by Organizat ion Details LastModified Time Tobacco Smoking Status Former Smoker 3 Walker Anton bety [facility] [place] 06/16/2019 17:24:51 Which Illicit Or Recreational Drugs Have You Used? None Information not available 06/16/2019 Do You Or Have You Ever Used E-cigarettes Or Vape? Never Used Electronic Cigarettes Information not available 06/16/2019 What Is Your Occupation? Retired Information not available 06/16/2019 What Was The Date Of Your Most Recent Tobacco Screening? 06/18/2019 Information not available 09/29/2019 How Many Children Do You Have? 4 Information not available 06/16/2019 Do You Or Have You Ever Used Smokeless Tobacco? Former Smokeless Tobacco User Information not available 06/16/2019 Sex: Unknown Functional Status None recorded. Mental Status None recorded. Family History Relationship Description Onset Age of this Age Resolved Age Notes LastModified by Organization Details LastModified Time Father Malignant neoplastic disease some type of blood cancer [email or web address] Not available 06/16/2019 17:22:38 Mother Malignant tumor of lung [email or web address] Not available 2019 17:22:48 Notes:no premature [place] Medical History Condition Response Coronary Artery Disease Y Myocardial Infarction Y Valvular Heart Disease Y Hyperlipidemia Y Hypertension Y Kidney Disease Y Immunizations Vaccine Type Date Status Note Provider Nam e and Address Organization Details Recorded Time Influenza, high-dose, quadrivalent, PF 1 completed Diaz albert [facility] [place] 09/06/2022 10:51:52 Pneumococcal conjugate PCV20, polysaccharide XYY745 conjugate, adjuvant, PF 2 completed Diaz albert [facility] [place] 09/06/2022 10:51:53 Past Encounters Encounter ID Performer Location Encounter Start Date Encounter Closed Date Diagnosis/Indication Diagnosis SNOMED-CT Code Diagnosis ICD10 Code Diagnosis Note [id number] Zenon Rosa Office [address] [address] 07/01/2019 09:57:39 07/01/2019 11:54:45 Acute non-ST segment elevation myocardial infarction 863565400 I21.4 h/o CAD s/p 4 v. CABG on 06/16/19, s/p NC 06/12/19 Continue ASA, metoprolol , statin. Begin cardiac rehab. after cleared with Dr. Blood. Coronary arteriosclerosis 55483544 I25.10 h/o CAD s/p 4 v. CABG on 06/16/19, s/p NC 06/12/19 Had C 06/12/2019 Three vessel severe CARD with totally occluded right, and collateral s from the left. Patent MOROCHO and normal LVSF. Continue ASA and metoprolol , as well as statin. Has f/u with Dr. Blood 07/17/2019. Essential hypertension 45542923 I10 Patient's blood pressure is {{well-con trolled* s omewhat well-contr olled not well-contr olled}} on present medical therapy. Patient is {{tolerati ng, without difficulty ,* having side effects with}} the current medication s. I have {{not made* made the following} } changes to the current regimen. {{ Patient is advised to maintain a blood pressure diary.*}} Patient was advised to eat a low-sodium diet (2 grams sodium or less daily). Hyperlipidemia 99986959 E78.5 Had LIPID 06/18/2019 TR 101 CH 126 HDL 42 LDL 64. Needs to keep LDL less than 70, and HDL more than 40. Continue atorvastat in 40 mg qHS. Aortic valve stenosis 60 554750 I35.0 Mild. Echo 06/12/2019 Technicall y difficult study with limited views The mitral valve has thickened leaflets. Grade I diastolic dysfunctio n of the LV (impaired relaxation pattern). LV wall thickness is borderline increased. There is trace mitral valve regurgitat ion. There is mild aortic valve sclerosis. There is trace aortic valve regurgitat ion. There is mild aortic valve stenosis with a peak velocity of 239 cm/s, mean gradient of 12 mmHg, and aortic valve area of 1.6 cm2. LV chamber dimension is normal. LVSF is normal with an estimated EF of 55-60% [id number] Zenon Rosa Office [address] [address] 07/08/2019 09:45:44 07/08/2019 10:57:08 Acute non-ST segment elevation myocardial infarction 204145158 I21.4 h/o CAD s/p 4 v. CABG on 06/16/19, s/p NC 06/12/19 Continue ASA, metoprolol , statin. Begin cardiac rehab. after cleared with Dr. Blood. Coronary arteriosclerosis 23342154 I25.10 h/o CAD s/p 4 v. CABG on 06/16/19, s/p NC 06/12/19 Had LHC 06/12/2019 Three vessel severe CARD with totally occluded right, and collateral s from the left. Patent MOROCHO and normal LVSF. Continue ASA and metoprolol , as well as statin. Has f/u with Dr. Blood 07/17/2019. Essential hypertension 24773587 I10 Patient's blood pressure is {{well-con trolled* s omewhat well-contr olled not well-contr olled}} on present medical therapy. Patient is {{tolerati ng, without difficulty ,* having side effects with}} the current medication s. I have {{not made* made the following} } changes to the current regimen. {{ Patient is advised to maintain a blood pressure diary.*}} Patient was advised to eat a low-sodium diet (2 grams sodium or less daily). Hyperlipidemia 52053795 E78.5 Had LIPID 06/18/2019 TR 101 CH 126 HDL 42 LDL 64. Needs to keep LDL less than 70, and HDL more than 40. Continue atorvastat in 40 mg qHS. Aortic valve stenosis 60 516458 I35.0 Mild. Echo 06/12/2019 Technicall y difficult study with limited views The mitral valve has thickened leaflets. Grade I diastolic dysfunctio n of the LV (impaired relaxation pattern). LV wall thickness is borderline increased. There is trace mitral valve regurgitat ion. There is mild aortic valve sclerosis. There is trace aortic valve regurgitat ion. There is mild aortic valve stenosis with a peak velocity of 239 cm/s, mean gradient of 12 mmHg, and aortic valve area of 1.6 cm2. LV chamber dimension is normal. LVSF is normal with an estimated EF of 55-60% Dizziness 799193843 R42 Possibly vasovagal, with bowel movement attempts and constipati on. Has started laxative per Dr. Blood. Obtain echo to evaluate for structural /functiona l disease. 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 Obtain records/la k[facility] 07/07/2019. [id number] Zenon Rosa Office [address] [address] 09/30/2019 12:03:57 09/30/2019 15:36:12 Acute non-ST segment elevation myocardial infarction 903845401 I21.4 h/o CAD s/p 4 v. CABG on 06/16/19, s/p NC 06/12/19 Continue ASA, metoprolol , statin. Begin cardiac rehab.He was cleared with Dr. Blood. Coronary arteriosclerosis 47324731 I25.10 h/o CAD s/p 4 v. CABG on 06/16/19, s/p NC 06/12/19 Had LHC 06/12/2019 Three vessel severe CARD with totally occluded right, and collateral s from the left. Patent MOROCHO and normal LVSF. Continue ASA and metoprolol , as well as statin. Had f/u with Dr. Blood 07/17/2019. Essential hypertension 15970945 I10 Patient's blood pressure is {{well-con trolled so mewhat well-contr olled* not well-contr olled}} on present medical therapy. Patient is {{tolerati ng, without difficulty ,* having side effects with}} the current medication s. I have {{not made* made the following} } changes to the current regimen. {{ Patient is advised to maintain a blood pressure diary.*}} Patient was advised to eat a low-sodium diet (2 grams sodium or less daily). Hyperlipidemia 10717851 E78.5 Had LIPID 06/18/2019 TR 101 CH 126 HDL 42 LDL 64. Needs to keep LDL less than 70, and HDL more than 40. Continue atorvastat in 40 mg qHS. Aortic valve stenosis 60 606329 I35.0 Mild. Had ECHO done in 09/12/19 showed LV wall thickness is mild to moderately increased. EF 50-55%(nor mal). LV relaxation is impaired. The aortic valve is moderately calcified. There is mild aortic valve stenosis. There is mild calcificat ion of mitral valve anterior leaflet. There is mild mitral annular calcificat ion. There is mild tricuspid regurgitat ion. Echo 06/12/2019 Technicall y difficult study with limited views The mitral valve has thickened leaflets. Grade I diastolic dysfunctio n of the LV (impaired relaxation pattern). LV wall thickness is borderline increased. There is trace mitral valve regurgitat ion. There is mild aortic valve sclerosis. There is trace aortic valve regurgitat ion. There is mild aortic valve stenosis with a peak velocity of 239 cm/s, mean gradient of 12 mmHg, and aortic valve area of 1.6 cm2. LV chamber dimension is normal. LVSF is normal with an estimated EF of 55-60% Dizziness [id number] R42 Possibly vasovagal, with bowel movement attempts and constipati on. Has started laxative with resolution of constipati on. Had ECHO done in 09/12/19 showed LV wall thickness is mild to moderately increased. EF 50-55%(nor mal). LV relaxation is impaired. The aortic valve is moderately calcified. There is mild aortic valve stenosis. There is mild calcificat ion of mitral valve anterior leaflet. There is mild mitral annular calcificat ion. There is mild tricuspid regurgitat ion. Obtain 7 day mobile hose handler, recording has been started. [id number] [address] [place] [address] 11/04/2019 10:43:11 11/04/2019 11:32:17 Acute non-ST segment elevation myocardial infarction [id number] I21.4 h/o CAD s/p 4 v. CABG on 06/16/19, s/p NC 06/12/19 Continue ASA, metoprolol , statin. Begin cardiac rehab.He was cleared with Dr. Blood. Coronary arteriosclerosis [id number] I25.10 h/o CAD s/p 4 v. CABG on 06/16/19, s/p NC 06/12/19 Had [facility] 06/12/2019 Three vessel severe CAD with totally occluded right, and collateral s from the left. Patent MOR[place]CHO and normal LVSF. Continue ASA and metoprolol , as well as statin. Had f/u with Dr. Blood 07/17/2019. Essential hypertension [id number] I10 Patient's blood pressure is {{well-con trolled* s omewhat well-contr olled not well-contr olled}} on present medical therapy. Patient is {{tolerati ng, without difficulty ,* having side effects with}} the current medication s. I have {{not made* made the following} } changes to the current regimen. {{ Patient is advised to maintain a blood pressure diary.*}} Patient was advised to eat a low-sodium diet (2 grams sodium or less daily). Hyperlipidemia [id number] E78.5 Had LIPID 06/18/2019 TR 101 CH 126 HDL 42 LDL 64. Needs to keep LDL less than 70, and HDL more than 40. Continue atorvastat in 40 mg qHS. Aortic valve stenosis 60 004130 I35.0 Mild. Had ECHO done in 09/12/19 showed LV wall thickness is mild to moderately increased. EF 50-55%(nor mal). LV relaxation is impaired. The aortic valve is moderately calcified. There is mild aortic valve stenosis. There is mild calcificat ion of mitral valve anterior leaflet. There is mild mitral annular calcificat ion. There is mild tricuspid regurgitat ion. Echo 06/12/2019 Technicall y difficult study with limited views The mitral valve has thickened leaflets. Grade I diastolic dysfunctio n of the LV (impaired relaxation pattern). LV wall thickness is borderline increased. There is trace mitral valve regurgitat ion. There is mild aortic valve sclerosis. There is trace aortic valve regurgitat ion. There is mild aortic valve stenosis with a peak velocity of 239 cm/s, mean gradient of 12 mmHg, and aortic valve area of 1.6 cm2. LV chamber dimension is normal. LVSF is normal with an estimated EF of 55-60% Dizziness [id number] R42 Possibly vasovagal, with bowel movement attempts and constipati on. Has started laxative with resolution of constipati on. Had ECHO done in 09/12/19 showed LV wall thickness is mild to moderately increased. EF 50-55%(nor mal). LV relaxation is impaired. The aortic valve is moderately calcified. There is mild aortic valve stenosis. There is mild calcificat ion of mitral valve anterior leaflet. There is mild mitral annular calcificat ion. There is mild tricuspid regurgitat ion. Had 5 day event monitor done 09/30/19: Unremarkab le event monitor. Symptoms did not correlate to any arrhythmia . The symptoms correlated with normal sinus rhythm. 6 Manual recordings correlated with normal sinus rhythm with no ectopy.. Obtain labs per PCP 11/2019. [address] [address] [address] 04/27/2020 10:06:19 04/27/2020 11:13:20 Acute non-ST segment elevation myocardial infarction [id number] I21.4 h/o CAD s/p 4 v. CABG on 06/16/19, s/p NC 06/12/19 Continue ASA, metoprolol , statin. Completed cardiac rehab.He was cleared with Dr. Blood. He is ok for Viagra or Cialis prn as per PCP. Coronary arteriosclerosis [id number] I25.10 h/o CAD s/p 4 v. CABG on 06/16/19, s/p NC 06/12/19 Had [facility] 06/12/2019 Three vessel severe CAD with totally occluded right, and collateral s from the left. Patent MOROCHO and normal LVSF. Continue ASA and metoprolol , as well as statin. Had f/u with Dr. Blood 07/17/2019. Essential hypertension [id number] I10 Patient's blood pressure is {{well-con trolled* s omewhat well-contr olled not well-contr olled}} on present medical therapy. Patient is {{tolerati ng, without difficulty ,* having side effects with}} the current medication s. I have {{not made* made the following} } changes to the current regimen. {{ Patient is advised to maintain a blood pressure diary.*}} Patient was advised to eat a low-sodium diet (2 grams sodium or less daily). Hyperlipidemia [id number] E78.5 Had LIPID 06/18/2019 TR 101 CH 126 HDL 42 LDL 64. Had LIPID 12/23/2019 CH 110 TR 105 HDL 31 LDL 58 Needs to keep LDL less than 70, and HDL more than 40. Continue walking. Continue atorvastat in 40 mg qHS. Aortic valve stenosis 60 [id number] I35.0 Mild. Had ECHO done in 09/12/19 showed LV wall thickness is mild to moderately increased. EF 50-55%(nor mal). LV relaxation is impaired. The aortic valve is moderately calcified. There is mild aortic valve stenosis. There is mild calcificat ion of mitral valve anterior leaflet. There is mild mitral annular calcificat ion. There is mild tricuspid regurgitat ion. Echo 06/12/2019 Technicall y difficult study with limited views The mitral valve has thickened leaflets. Grade I diastolic dysfunctio n of the LV (impaired relaxation pattern). LV wall thickness is borderline increased. There is trace mitral valve regurgitat ion. There is mild aortic valve sclerosis. There is trace aortic valve regurgitat ion. There is mild aortic valve stenosis with a peak velocity of 239 cm/s, mean gradient of 12 mmHg, and aortic valve area of 1.6 cm2. LV chamber dimension is normal. LVSF is normal with an estimated EF of 55-60% Dizziness [id number] R42 Possibly vasovagal, with bowel movement attempts and constipati on. Has started laxative with resolution of constipati on. Had ECHO done in 09/12/19 showed LV wall thickness is mild to moderately increased. EF 50-55%(nor mal). LV relaxation is impaired. The aortic valve is moderately calcified. There is mild aortic valve stenosis. There is mild calcificat ion of mitral valve anterior leaflet. There is mild mitral annular calcificat ion. There is mild tricuspid regurgitat ion. Had 5 day event monitor done 09/30/19: Unremarkab le event monitor. Symptoms did not correlate to any arrhythmia . The symptoms correlated with normal sinus rhythm. 6 Manual recordings correlated with normal sinus rhythm with no ectopy.. [id number] [address] [place] [address] 10/26/2020 11:21:36 10/26/2020 12:28:57 Acute non-ST segment elevation myocardial infarction [id number] I21.4 h/o CAD s/p 4 v. CABG on 06/16/19, s/p NC 06/12/19 Continue ASA, metoprolol , statin. Completed cardiac rehab. He was cleared with Dr. Blood. Given sinus bradycardi a 46 bpm on EKG 10/26/20, reduced metroprolo l tartrate 50 mg bid to metoprolol succinate 50 mg qd 10/26/20. He is ok for Viagra or Cialis prn as per PCP. Coronary arteriosclerosis [id number] I25.10 h/o CAD s/p 4 v. CABG on 06/16/19, s/p NC 06/12/19 Had [facility] 06/12/2019 Three vessel severe CAD with totally occluded right, and collateral s from the left. Patent M[place] and normal LVSF. Continue ASA and metoprolol , as well as statin. Had f/u with Dr. Blood 07/17/2019. Consider Xarelto 2.5 mg bid for CV risk reduction, and patient will consider next visit. Essential hypertension 65241550 I10 Patient's blood pressure is {{well-con trolled* s omewhat well-contr olled not well-contr olled}} on present medical therapy. Patient is {{tolerati ng, without difficulty ,* having side effects with}} the current medication s. I have {{not made* made the following} } changes to the current regimen. {{ Patient is advised to maintain a blood pressure diary.*}} Patient was advised to eat a low-sodium diet (2 grams sodium or less daily). Given sinus bradycardi a 46 bpm on EKG 10/26/20, reduced metroprolo l tartrate 50 mg bid to metoprolol succinate 50 mg qd 10/26/20. BP diary. Hyperlipidemia [id number] E78.5 Had LIPID 06/18/2019 TR 101 CH 126 HDL 42 LDL 64. Had LIPID 12/23/2019 CH 110 TR 105 HDL 31 LDL 58 Needs to keep LDL less than 70, and HDL more than 40. Continue walking. Continue atorvastat in 40 mg qHS. Obtain FLP, CMP results per PCP in last 2 months. Anticipate increase in atorvastat in dose to high intensity therapy. Aortic valve stenosis 60 [id number] I35.0 Mild. Had ECHO done in 09/12/19 showed LV wall thickness is mild to moderately increased. EF 50-55%(nor mal). LV relaxation is impaired. The aortic valve is moderately calcified. There is mild aortic valve stenosis. There is mild calcificat ion of mitral valve anterior leaflet. There is mild mitral annular calcificat ion. There is mild tricuspid regurgitat ion. Echo 06/12/2019 Technicall y difficult study with limited views The mitral valve has thickened leaflets. Grade I diastolic dysfunctio n of the LV (impaired relaxation pattern). LV wall thickness is borderline increased. There is trace mitral valve regurgitat ion. There is mild aortic valve sclerosis. There is trace aortic valve regurgitat ion. There is mild aortic valve stenosis with a peak velocity of 239 cm/s, mean gradient of 12 mmHg, and aortic valve area of 1.6 cm2. LV chamber dimension is normal. LVSF is normal with an estimated EF of 55-60% Dizziness [id number] R42 Possibly vasovagal, with bowel movement attempts and constipati on. Has started laxative with resolution of constipati on. Had ECHO done in 09/12/19 showed LV wall thickness is mild to moderately increased. EF 50-55%(nor mal). LV relaxation is impaired. The aortic valve is moderately calcified. There is mild aortic valve stenosis. There is mild calcificat ion of mitral valve anterior leaflet. There is mild mitral annular calcificat ion. There is mild tricuspid regurgitat ion. Had 5 day event monitor done 09/30/19: Unremarkab le event monitor. Symptoms did not correlate to any arrhythmia . The symptoms correlated with normal sinus rhythm. 6 Manual recordings correlated with normal sinus rhythm with no ectopy.. [id number] [address] [address] 12/28/2020 10:29:59 12/28/2020 12:05:45 Acute non-ST segment elevation myocardial infarction [id number] I21.4 h/o CAD s/p 4 v. CABG on 06/16/19, s/p NC 06/12/19 Continue ASA, metoprolol , statin. Completed cardiac rehab. He was cleared with Dr. Blood. Given sinus bradycardi a 46 bpm on EKG 10/26/20, reduced metroprolo l tartrate 50 mg bid to metoprolol succinate 50 mg qd 10/26/20. He is ok for Viagra or Cialis prn as per PCP. Coronary arteriosclerosis [id number] I25.10 h/o CAD s/p 4 v. CABG on 06/16/19, s/p NC 06/12/19 Had [facility] 06/12/2019 Three vessel severe CAD with totally occluded right, and collateral s from the left. Patent M[place] and normal LVSF. Continue ASA and metoprolol , as well as statin. Had f/u with Daily 07/17/2019. He prefers not to take Xarelto 2.5 mg for CV risk reduction due to bruising on ASA. Essential hypertension 75127432 I10 Patient's blood pressure is {{well-con trolled* s omewhat well-contr olled not well-contr olled}} on present medical therapy. Patient is {{tolerati ng, without difficulty ,* having side effects with}} the current medication s. I have {{not made* made the following} } changes to the current regimen. {{ Patient is advised to maintain a blood pressure diary.*}} Patient was advised to eat a low-sodium diet (2 grams sodium or less daily). Given sinus bradycardi a 46 bpm on EKG 10/26/20, reduced metroprolo l tartrate 50 mg bid to metoprolol succinate 50 mg qd 10/26/20. BP diary. Had 12/17/20: hgb 15.5, K 4.5, Cr 1.24 Obtain FLP, BMP, Mg, CBC. Hyperlipidemia [id number] E78.5 Had LIPID 06/18/2019 TR 101 CH 126 HDL 42 LDL 64. Had LIPID 12/23/2019 CH 110 TR 105 HDL 31 LDL 58 Needs to keep LDL less than 70, and HDL more than 40. Continue walking. Continue atorvastat in 40 mg qHS. Had 12/17/20: hgb 15.5, K 4.5, Cr 1.24, LDL 58, HDL 33. Increase in atorvastat in dose to high intensity therapy 80 mg qHS 12/28/20 given severe CAD. Aortic valve stenosis 60 120840 I35.0 Mild. Had ECHO done in 09/12/19 showed LV wall thickness is mild to moderately increased. EF 50-55%(nor mal). LV relaxation is impaired. The aortic valve is moderately calcified. There is mild aortic valve stenosis. There is mild calcificat ion of mitral valve anterior leaflet. There is mild mitral annular calcificat ion. There is mild tricuspid regurgitat ion. Echo 06/12/2019 Technicall y difficult study with limited views The mitral valve has thickened leaflets. Grade I diastolic dysfunctio n of the LV (impaired relaxation pattern). LV wall thickness is borderline increased. There is trace mitral valve regurgitat ion. There is mild aortic valve sclerosis. There is trace aortic valve regurgitat ion. There is mild aortic valve stenosis with a peak velocity of 239 cm/s, mean gradient of 12 mmHg, and aortic valve area of 1.6 cm2. LV chamber dimension is normal. LVSF is normal with an estimated EF of 55-60% Dizziness [id number] R42 Possibly vasovagal, with bowel movement attempts and constipati on. Has started laxative with resolution of constipati on. Had ECHO done in 09/12/19 showed LV wall thickness is mild to moderately increased. EF 50-55%(nor mal). LV relaxation is impaired. The aortic valve is moderately calcified. There is mild aortic valve stenosis. There is mild calcificat ion of mitral valve anterior leaflet. There is mild mitral annular calcificat ion. There is mild tricuspid regurgitat ion. Had 5 day event monitor done 09/30/19: Unremarkab le event monitor. Symptoms did not correlate to any arrhythmia . The symptoms correlated with normal sinus rhythm. 6 Manual recordings correlated with normal sinus rhythm with no ectopy.. [id number] [address] [facility] [place] [address] 06/28/2021 10:54:38 06/28/2021 12:12:45 Acute non-ST segment elevation myocardial infarction [id number] I21.4 h/o CAD s/p 4 v. CABG on 06/16/19, s/p NC 06/12/19 Continue ASA, metoprolol , statin. Completed cardiac rehab. He was cleared with Dr. Blood. Given sinus bradycardi a 46 bpm on EKG 10/26/20, reduced metroprolo l tartrate 50 mg bid to metoprolol succinate 50 mg qd 10/26/20. He is ok for Viagra or Cialis prn as per PCP. Coronary arteriosclerosis [id number] I25.10 h/o CAD s/p 4 v. CABG on 06/16/19, s/p NC 06/12/19 Had [facility] 06/12/2019 Three vessel severe CAD with totally occluded right, and collateral s from the left. Continue ASA and metoprolol , as well as statin. Had f/u with Dr. Blood 07/17/2019. He prefers not to take Xarelto 2.5 mg for CV risk reduction due to bruising on ASA. Essential hypertension 76254532 I10 Patient's blood pressure is {{well-con trolled* s omewhat well-contr olled not well-contr olled}} on present medical therapy. Patient is {{tolerati ng, without difficulty ,* having side effects with}} the current medication s. I have {{not made* made the following} } changes to the current regimen. {{ Patient is advised to maintain a blood pressure diary.*}} Patient was advised to eat a low-sodium diet (2 grams sodium or less daily). Given sinus bradycardi a 46 bpm on EKG 10/26/20, reduced metroprolo l tartrate 50 mg bid to metoprolol succinate 50 mg qd 10/26/20. BP diary. Had 12/17/20: hgb 15.5, K 4.5, Cr 1.24 Had 06/22/21: Hgb 16.1, Cr 1.21, K 4.4, TSH 1.71, gluc 112, hgb A1C 6.3%, HDL 33, LDL 53 Hyperlipidemia [id number] E78.5 Had LIPID 06/18/2019 TR 101 CH 126 HDL 42 LDL 64. Had LIPID 12/23/2019 CH 110 TR 105 HDL 31 LDL 58 Needs to keep LDL less than 70, and HDL more than 40. Continue walking. Continue atorvastat in 40 mg qHS. Had 12/17/20: hgb 15.5, K 4.5, Cr 1.24, LDL 58, HDL 33. Increase in atorvastat in dose to high intensity therapy 80 mg qHS 12/28/20 given severe CAD. Had 06/22/21: HDL 33, LDL 53 Aortic valve stenosis 60 157383 I35.0 Mild. Had ECHO done in 09/12/19 showed LV wall thickness is mild to moderately increased. EF 50-55%(nor mal). LV relaxation is impaired. The aortic valve is moderately calcified. There is mild aortic valve stenosis. There is mild calcificat ion of mitral valve anterior leaflet. There is mild mitral annular calcificat ion. There is mild tricuspid regurgitat ion. Echo 06/12/2019 Technicall y difficult study with limited views The mitral valve has thickened leaflets. Grade I diastolic dysfunctio n of the LV (impaired relaxation pattern). LV wall thickness is borderline increased. There is trace mitral valve regurgitat ion. There is mild aortic valve sclerosis. There is trace aortic valve regurgitat ion. There is mild aortic valve stenosis with a peak velocity of 239 cm/s, mean gradient of 12 mmHg, and aortic valve area of 1.6 cm2. LV chamber dimension is normal. LVSF is normal with an estimated EF of 55-60% Obtain echo to evaluate for structural /functiona l disease. Dizziness [id number] R42 Possibly vasovagal, with bowel movement attempts and constipati on. Has started laxative with resolution of constipati on. Had ECHO done in 09/12/19 showed LV wall thickness is mild to moderately increased. EF 50-55%(nor mal). LV relaxation is impaired. The aortic valve is moderately calcified. There is mild aortic valve stenosis. There is mild calcificat ion of mitral valve anterior leaflet. There is mild mitral annular calcificat ion. There is mild tricuspid regurgitat ion. Had 5 day event monitor done 09/30/19: Unremarkab le event monitor. Symptoms did not correlate to any arrhythmia . The symptoms correlated with normal sinus rhythm. 6 Manual recordings correlated with normal sinus rhythm with no ectopy.. Chest pain [id number] R07. 2 Patient presents with {{chest* a rm back ja w}} pain {{typical of angina wit h atypical features*} }. Given the history, exam findings and {{high* in termediate low}} cardiac risk factors with known CAD s/p CABG 2 years ago, I {{feel* do not feel}} additional investigat ion is warranted. I have made arrangemen ts in the near future for {{an exercise stress echocardio gram to evaluate for any ischemia, structural heart disease, or exercise induced arrythmia an exercise stress nuclear test an exercise stress nuclear test (stress echo not possible due to COPD or obesity) a n exercise stress nuclear test and an echocardio gram to evaluate for any ischemia or structural heart disease* a pharmacolo gic stress nuclear test due to reduced functional capacity or conduction abnormalit y cardiac catheteriz ation an echocardio gram to evaluate left ventricula r function and any structural heart disease or valvular abnormalit y}}. The procedure was discussed with the patient, and risks, benefits, and alternativ e options were explained. {{ The patient was informed about heart catheteriz ation and interventi onal procedures and agrees to proceed.}} Appropriat e labwork {{has* has not}} been performed recently, therefore I {{have not* have} } made arrangemen ts for further testing. I have asked the patient to curtail exercise and activities until our investigat ion is complete. I have {{made no made the following* }} adjustment s to the present medical regimen. {{ Patient has been started on daily aspirin.}} {{ Patient has been given a prescripti on for sublingual nitroglyce rin.}} [id number] [facility] [place] [address] 09/07/2021 13:55:17 09/07/2021 14:59:59 Chest pain [id number] R07.2 Resolved. Had (07/20/21) Exercise Stress Nuclear Test. Negative stress test for ischemia. Normal LV systolic function. Artifact noted. No previous study. Exercise tolerance: Below Average. Had () ECHO. Study quality: Technicall y difficult. Technical limitation s- poor acoustic window. LV chamber size is normal. There is borderline LV hypertroph y. The estimated left ventricle ejection fraction is 55-60% (normal). LV relaxation is impaired. The aortic valve is mildly calcified. There is mild aortic root calcificat ion. There is mild aortic valve stenosis. The mitral valve leaflet is mildly thickened. There is mild triscupid regurgitat ion. Sinus Bradycardi a. Acute non- ST segment elevation myocardial infarction [id number] I21.4 h/o CAD s/p 4 v. CABG on 06/16/19, s/p NC 06/12/19 Continue ASA, metoprolol , statin. Completed cardiac rehab. He was cleared with Dr. Blood. Given sinus bradycardi a 46 bpm on EKG 10/26/20, reduced metroprolo l tartrate 50 mg bid to metoprolol succinate 50 mg qd 10/26/20. He is ok for Viagra or Cialis prn as per PCP. Coronary arteriosclerosis 05523682 I25.10 h/o CAD s/p 4 v. CABG on 06/16/19, s/p NC 06/12/19 Had C 06/12/2019 Three vessel severe CAD with totally occluded right, and collateral s from the left. Continue ASA and metoprolol , as well as statin. Had f/u with Dr. Blood 07/17/2019. He prefers not to take Xarelto 2.5 mg for CV risk reduction due to bruising on ASA. Essential hypertension 37478569 I10 Patient's blood pressure is {{well-con trolled* s omewhat well-contr olled not well-contr olled}} on present medical therapy. Patient is {{tolerati ng, without difficulty ,* having side effects with}} the current medication s. I have {{not made* made the following} } changes to the current regimen. {{ Patient is advised to maintain a blood pressure diary.*}} Patient was advised to eat a low-sodium diet (2 grams sodium or less daily). Given sinus bradycardi a 46 bpm on EKG 10/26/20, reduced metroprolo l tartrate 50 mg bid to metoprolol succinate 50 mg qd 10/26/20. BP diary. Had 12/17/20: hgb 15.5, K 4.5, Cr 1.24 Had 06/22/21: Hgb 16.1, Cr 1.21, K 4.4, TSH 1.71, gluc 112, hgb A1C 6.3%, HDL 33, LDL 53 Hyperlipidemia [id number] E78.5 Had LIPID 06/18/2019 TR 101 CH 126 HDL 42 LDL 64. Had LIPID 12/23/2019 CH 110 TR 105 HDL 31 LDL 58 Needs to keep LDL less than 70, and HDL more than 40. Continue walking. Continue atorvastat in 40 mg qHS. Had 12/17/20: hgb 15.5, K 4.5, Cr 1.24, LDL 58, HDL 33. Increase in atorvastat in dose to high intensity therapy 80 mg qHS 12/28/20 given severe CAD. Had 06/22/21: HDL 33, LDL 53 Obtain FLP, CMP, Mg, TSH, CBC. Aortic valve stenosis 60 065674 I35.0 Mild. Had ( 2) ECHO. Study quality: Technicall y difficult. Technical limitation s- poor acoustic window. LV chamber size is normal. There is borderline LV hypertroph y. The estimated left ventricle ejection fraction is 55-60% (normal). LV relaxation is impaired. The aortic valve is mildly calcified. There is mild aortic root calcificat ion. There is mild aortic valve stenosis. The mitral valve leaflet is mildly thickened. There is mild triscupid regurgitat ion. Sinus Bradycardi a. Had ECHO done in 09/12/19 showed LV wall thickness is mild to moderately increased. EF 50-55%(nor mal). LV relaxation is impaired. The aortic valve is moderately calcified. There is mild aortic valve stenosis. There is mild calcificat ion of mitral valve anterior leaflet. There is mild mitral annular calcificat ion. There is mild tricuspid regurgitat ion. Echo 06/12/2019 Technicall y difficult study with limited views The mitral valve has thickened leaflets. Grade I diastolic dysfunctio n of the LV (impaired relaxation pattern). LV wall thickness is borderline increased. There is trace mitral valve regurgitat ion. There is mild aortic valve sclerosis. There is trace aortic valve regurgitat ion. There is mild aortic valve stenosis with a peak velocity of 239 cm/s, mean gradient of 12 mmHg, and aortic valve area of 1.6 cm2. LV chamber dimension is normal. LVSF is normal with an estimated EF of 55-60% Dizziness [id number] R42 Possibly vasovagal, with bowel movement attempts and constipati on. Has started laxative with resolution of constipati on. Had ( 2) ECHO. Study quality: Technicall y difficult. Technical limitation s- poor acoustic window. LV chamber size is normal. There is borderline LV hypertroph y. The estimated left ventricle ejection fraction is 55-60% (normal). LV relaxation is impaired. The aortic valve is mildly calcified. There is mild aortic root calcificat ion. There is mild aortic valve stenosis. The mitral valve leaflet is mildly thickened. There is mild triscupid regurgitat ion. Sinus Bradycardi a. Had 5 day event monitor done 09/30/19: Unremarkab le event monitor. Symptoms did not correlate to any arrhythmia . The symptoms correlated with normal sinus rhythm. 6 Manual recordings correlated with normal sinus rhythm with no ectopy.. [id number] Zenon Goldsmithhman [address] [place] [address] 03/08/2022 13:58:43 03/08/2022 15:18:26 Chest pain [id number] R07.2 Resolved. Had (07/20/21) Exercise Stress Nuclear Test. Negative stress test for ischemia. Normal LV systolic function. Artifact noted. No previous study. Exercise tolerance: Below Average. Had ( 2) ECHO. Study quality: Technicall y difficult. Technical limitation s- poor acoustic window. LV chamber size is normal. There is borderline LV hypertroph y. The estimated left ventricle ejection fraction is 55-60% (normal). LV relaxation is impaired. The aortic valve is mildly calcified. There is mild aortic root calcificat ion. There is mild aortic valve stenosis. The mitral valve leaflet is mildly thickened. There is mild triscupid regurgitat ion. Sinus Bradycardi a. Acute non- ST segment elevation myocardial infarction [id number] I21.4 h/o CAD s/p 4 v. CABG on 06/16/19, s/p NC 06/12/19 Continue ASA, metoprolol , lisinopril , statin. Completed cardiac rehab. He was cleared with Dr. Blood. Given sinus bradycardi a 46 bpm on EKG 10/26/20, reduced metroprolo l tartrate 50 mg bid to metoprolol succinate 50 mg qd 10/26/20. He is ok for Viagra or Cialis prn as per PCP. Coronary arteriosclerosis [id number] I25.10 h/o CAD s/p 4 v. CABG on 06/16/19, s/p NC 06/12/19 Had [facility] 06/12/2019 Three vessel severe CAD with totally occluded right, and collateral s from the left. Continue ASA and metoprolol , as well as statin. Had f/u with Dr. Blood 07/17/2019. He prefers not to take Xarelto 2.5 mg for CV risk reduction due to bruising on ASA. Essential hypertension [id number] I10 Patient's blood pressure is {{well-con trolled* s omewhat well-contr olled not well-contr olled}} on present medical therapy. Patient is {{tolerati ng, without difficulty ,* having side effects with}} the current medication s. I have {{not made* made the following} } changes to the current regimen. {{ Patient is advised to maintain a blood pressure diary.*}} Patient was advised to eat a low-sodium diet (2 grams sodium or less daily). Given sinus bradycardi a 46 bpm on EKG 10/26/20, reduced metroprolo l tartrate 50 mg bid to metoprolol succinate 50 mg qd 10/26/20. BP diary. Had 12/17/20: hgb 15.5, K 4.5, Cr 1.24 Had 06/22/21: Hgb 16.1, Cr 1.21, K 4.4, TSH 1.71, gluc 112, hgb A1C 6.3%, HDL 33, LDL 53 Had 12/29/21:W BC 6.2,RBC 5.57,Hgb 16.5,HCT 49.7,PLT 176.:Na 139,K 4.6,CL 100,CO2 24,GLU 118,BUN 23,Cr 1.27,ALT 16,AST 24. 2:TC 117,TG 110,HDL 34,LDL 63. Hyperlipidemia [id number] E78.5 Had LIPID 06/18/2019 TR 101 CH 126 HDL 42 LDL 64. Had LIPID 12/23/2019 CH 110 TR 105 HDL 31 LDL 58 Continue walking. Continue atorvastat in 40 mg qHS. Had 12/17/20: hgb 15.5, K 4.5, Cr 1.24, LDL 58, HDL 33. Increase in atorvastat in dose to high intensity therapy 80 mg qHS 12/28/20 given severe CAD. Had 06/22/21: HDL 33, LDL 53 12/29/21:T C 117,TG 110,HDL 34,LDL 63. Reduce shrimp. Needs to keep LDL less than 55, and HDL more than 40, with prior NC and mutiple high risk conditions . Switched atorvastat in 80 mg to rosuvastat in 40 mg HS 03/08/22. Obtain FLP, CMP, Mg, TSH, CBC. Aortic valve stenosis 60 [id number] I35.0 Mild. Had ( 2) ECHO. Study quality: Technicall y difficult. Technical limitation s- poor acoustic window. LV chamber size is normal. There is borderline LV hypertroph y. The estimated left ventricle ejection fraction is 55-60% (normal). LV relaxation is impaired. The aortic valve is mildly calcified. There is mild aortic root calcificat ion. There is mild aortic valve stenosis. The mitral valve leaflet is mildly thickened. There is mild triscupid regurgitat ion. Sinus Bradycardi a. Had ECHO done in 09/12/19 showed LV wall thickness is mild to moderately increased. EF 50-55%(nor mal). LV relaxation is impaired. The aortic valve is moderately calcified. There is mild aortic valve stenosis. There is mild calcificat ion of mitral valve anterior leaflet. There is mild mitral annular calcificat ion. There is mild tricuspid regurgitat ion. Echo 06/12/2019 Technicall y difficult study with limited views The mitral valve has thickened leaflets. Grade I diastolic dysfunctio n of the LV (impaired relaxation pattern). LV wall thickness is borderline increased. There is trace mitral valve regurgitat ion. There is mild aortic valve sclerosis. There is trace aortic valve regurgitat ion. There is mild aortic valve stenosis with a peak velocity of 239 cm/s, mean gradient of 12 mmHg, and aortic valve area of 1.6 cm2. LV chamber dimension is normal. LVSF is normal with an estimated EF of 55-60% Dizziness [id number] R42 Possibly vasovagal, with bowel movement attempts and constipati on. Has started laxative with resolution of constipati on. Had ( 2) ECHO. Study quality: Technicall y difficult. Technical limitation s- poor acoustic window. LV chamber size is normal. There is borderline LV hypertroph y. The estimated left ventricle ejection fraction is 55-60% (normal). LV relaxation is impaired. The aortic valve is mildly calcified. There is mild aortic root calcificat ion. There is mild aortic valve stenosis. The mitral valve leaflet is mildly thickened. There is mild triscupid regurgitat ion. Sinus Bradycardi a. Had 5 day event monitor done 09/30/19: Unremark le event monitor. Symptoms did not correlate to any arrhythmia . The symptoms correlated with normal sinus rhythm. 6 Manual recordings correlated with normal sinus rhythm with no ectopy.. [address] Zenon Da Silva [place] OFF[facility] [place] [address] 09/06/2022 10:44:06 09/06/2022 12:05:41 Chest pain [id number] R07.2 Resolved. Had (07/20/21) Exercise Stress Nuclear Test. Negative stress test for ischemia. Normal LV systolic function. Artifact noted. No previous study. Exercise tolerance: Below Average. Had ( 2) ECHO. Study quality: Technicall y difficult. Technical limitation s- poor acoustic window. LV chamber size is normal. There is borderline LV hypertroph y. The estimated left ventricle ejection fraction is 55-60% (normal). LV relaxation is impaired. The aortic valve is mildly calcified. There is mild aortic root calcificat ion. There is mild aortic valve stenosis. The mitral valve leaflet is mildly thickened. There is mild triscupid regurgitat ion. Sinus Bradycardi a. Acute non- ST segment elevation myocardial infarction [id number] I21.4 h/o CAD s/p 4 v. CABG on 06/16/19, s/p NC 06/12/19 Continue ASA, metoprolol , lisinopril , statin. Completed cardiac rehab. He was cleared with Dr. Blood. Given sinus bradycardi a 46 bpm on EKG 10/26/20, reduced metroprolo l tartrate 50 mg bid to metoprolol succinate 50 mg qd 10/26/20. He is ok for Viagra or Cialis prn as per PCP. Coronary arteriosclerosis [id number] I25.10 h/o CAD s/p 4 v. CABG on 06/16/19, s/p NC 06/12/19 Had [facility] 06/12/2019 Three vessel severe CAD with totally occluded right, and collateral s from the left. Continue ASA and metoprolol , as well as statin. Had f/u with Dr. Blood 07/17/2019. He prefers not to take Xarelto 2.5 mg for CV risk reduction due to bruising on ASA. Essential hypertension [id number] I10 Patient's blood pressure is {{well-con trolled* s omewhat well-contr olled not well-contr olled}} on present medical therapy. Patient is {{tolerati ng, without difficulty ,* having side effects with}} the current medication s. I have {{not made* made the following} } changes to the current regimen. {{ Patient is advised to maintain a blood pressure diary.*}} Patient was advised to eat a low-sodium diet (2 grams sodium or less daily). Given sinus bradycardi a 46 bpm on EKG 10/26/20, reduced metroprolo l tartrate 50 mg bid to metoprolol succinate 50 mg qd 10/26/20. BP diary. Had 12/17/20: hgb 15.5, K 4.5, Cr 1.24 Had 06/22/21: Hgb 16.1, Cr 1.21, K 4.4, TSH 1.71, gluc 112, hgb A1C 6.3%, HDL 33, LDL 53 Had 12/29/21:W BC 6.2,RBC 5.57,Hgb 16.5,HCT 49.7,PLT 176.:Na 139,K 4.6,CL 100,CO2 24,GLU 118,BUN 23,Cr 1.27,ALT 16,AST 24. 2:TC 117,TG 110,HDL 34,LDL 63. Had 08/30/2022 CBC-WBC 6.5 RBC 5.28 HGB 15.4 HCT 46.3 PLT 172CMP-GL 114 BUN 21 CR 1.41 NA 142 K 4.8 CA 9.5LIPID-C HOL 102 TRIG 98 HDL 31 LDL 52TSH-1.85 0MAG-2.0 Obtain BMP, Mg. Reassess mildly elevated Cr. Hyperlipidemia [id number] E78.5 Had LIPID 06/18/2019 TR 101 CH 126 HDL 42 LDL 64. Had LIPID 12/23/2019 CH 110 TR 105 HDL 31 LDL 58 Continue walking. Continue atorvastat in 40 mg qHS. Had 12/17/20: hgb 15.5, K 4.5, Cr 1.24, LDL 58, HDL 33. Increase in atorvastat in dose to high intensity therapy 80 mg qHS 12/28/20 given severe CAD. Had 06/22/21: HDL 33, LDL 53 12/29/21:T C 117,TG 110,HDL 34,LDL 63. Reduce shrimp. Needs to keep LDL less than 55, and HDL more than 40, with prior NC and mutiple high risk conditions . Switched atorvastat in 80 mg to rosuvastat in 40 mg HS 03/08/22. Had 08/30/2022 LIPID-CHOL 102 TRIG 98 HDL 31 LDL 52 Aortic valve stenosis 60 [id number] I35.0 Mild. Had ( 2) ECHO. Study quality: Technicall y difficult. Technical limitation s- poor acoustic window. LV chamber size is normal. There is borderline LV hypertroph y. The estimated left ventricle ejection fraction is 55-60% (normal). LV relaxation is impaired. The aortic valve is mildly calcified. There is mild aortic root calcificat ion. There is mild aortic valve stenosis. The mitral valve leaflet is mildly thickened. There is mild triscupid regurgitat ion. Sinus Bradycardi a. Had ECHO done in 09/12/19 showed LV wall thickness is mild to moderately increased. EF 50-55%(nor mal). LV relaxation is impaired. The aortic valve is moderately calcified. There is mild aortic valve stenosis. There is mild calcificat ion of mitral valve anterior leaflet. There is mild mitral annular calcificat ion. There is mild tricuspid regurgitat ion. Echo 06/12/2019 Technicall y difficult study with limited views The mitral valve has thickened leaflets. Grade I diastolic dysfunctio n of the LV (impaired relaxation pattern). LV wall thickness is borderline increased. There is trace mitral valve regurgitat ion. There is mild aortic valve sclerosis. There is trace aortic valve regurgitat ion. There is mild aortic valve stenosis with a peak velocity of 239 cm/s, mean gradient of 12 mmHg, and aortic valve area of 1.6 cm2. LV chamber dimension is normal. LVSF is normal with an estimated EF of 55-60% Obtain echo to evaluate for structural /functiona l disease. Dizziness [id number] R42 Possibly vasovagal, with bowel movement attempts and constipati on. Has started laxative with resolution of constipati on. Had ( 2) ECHO. Study quality: Technicall y difficult. Technical limitation s- poor acoustic window. LV chamber size is normal. There is borderline LV hypertroph y. The estimated left ventricle ejection fraction is 55-60% (normal). LV relaxation is impaired. The aortic valve is mildly calcified. There is mild aortic root calcificat ion. There is mild aortic valve stenosis. The mitral valve leaflet is mildly thickened. There is mild triscupid regurgitat ion. Sinus Bradycardi a. Had 5 day event monitor done 09/30/19: [facility]. Symptoms did not correlate to any arrhythmia . The symptoms correlated with normal sinus rhythm. 6 Manual recordings correlated with normal sinus rhythm with no ectopy.. [id number] Zenon Da Silva [facility] [address] [place] [address] 10/02/2022 14:46:39 10/02/2022 16:38:09 Chest pain [id number] R07.2 Resolved. Had (07/20/21) Exercise Stress Nuclear Test. Negative stress test for ischemia. Normal LV systolic function. Artifact noted. No previous study. Exercise tolerance: Below Average. Had 09/25/22 US, echocardio gram:Study quality: Technical difficult. Technical limitation s- poor acoustic window. LV chamber size is normal. LV wall thickness is moderately increased. The estimated left ventricle ejection fraction is 60-65% (normal). LV relaxation is impaired. The aortic valve is moderately calcified. There is mild aortic root calcificat ion. There is mild aortic valve stenosis. There is mild calcificat ion of the mitral valve leaflets. There is minimal pulmonic regurgitat ion. Sinus Bradycardi a. Acute non- ST segment elevation myocardial infarction [id number] I21.4 h/o CAD s/p 4 v. CABG on 06/16/19, s/p NC 06/12/19 Continue ASA, metoprolol , lisinopril , statin. Completed cardiac rehab. He was cleared with Dr. Blood. Given sinus bradycardi a 46 bpm on EKG 10/26/20, reduced metroprolo l tartrate 50 mg bid to metoprolol succinate 50 mg qd 10/26/20. He is ok for Viagra or Cialis prn as per PCP. Coronary arteriosclerosis [id number] I25.10 h/o CAD s/p 4 v. CABG on 06/16/19, s/p NC 06/12/19 Had [facility] 06/12/2019 Three vessel severe CAD with totally occluded right, and collateral s from the left. Continue ASA and metoprolol , as well as statin. Had f/u with Dr. Blood 07/17/2019. He prefers not to take Xarelto 2.5 mg for CV risk reduction due to bruising on ASA. Essential hypertension 11091615 I10 Patient's blood pressure is {{well-con trolled* s omewhat well-contr olled not well-contr olled}} on present medical therapy. Patient is {{tolerati ng, without difficulty ,* having side effects with}} the current medication s. I have {{not made* made the following} } changes to the current regimen. {{ Patient is advised to maintain a blood pressure diary.*}} Patient was advised to eat a low-sodium diet (2 grams sodium or less daily). Given sinus bradycardi a 46 bpm on EKG 10/26/20, reduced metroprolo l tartrate 50 mg bid to metoprolol succinate 50 mg qd 10/26/20. BP diary. Had 12/17/20: hgb 15.5, K 4.5, Cr 1.24 Had 06/22/21: Hgb 16.1, Cr 1.21, K 4.4, TSH 1.71, gluc 112, hgb A1C 6.3%, HDL 33, LDL 53 Had 12/29/21:W BC 6.2,RBC 5.57,Hgb 16.5,HCT 49.7,PLT 176.:Na 139,K 4.6,CL 100,CO2 24,GLU 118,BUN 23,Cr 1.27,ALT 16,AST 24. 2:TC 117,TG 110,HDL 34,LDL 63. Had 08/30/2022 CBC-WBC 6.5 RBC 5.28 HGB 15.4 HCT 46.3 PLT 172CMP-GL 114 BUN 21 CR 1.41 NA 142 K 4.8 CA 9.5LIPID-C HOL 102 TRIG 98 HDL 31 LDL 52TSH-1.85 0MAG-2.0 Had 09/26/22: Cr 1.21, K 4.3, Mg 1.7 Hyperlipidemia [id number] E78.5 Had LIPID 06/18/2019 TR 101 CH 126 HDL 42 LDL 64. Had LIPID 12/23/2019 CH 110 TR 105 HDL 31 LDL 58 Continue walking. Continue atorvastat in 40 mg qHS. Had 12/17/20: hgb 15.5, K 4.5, Cr 1.24, LDL 58, HDL 33. Increase in atorvastat in dose to high intensity therapy 80 mg qHS 12/28/20 given severe CAD. Had 06/22/21: HDL 33, LDL 53 12/29/21:T C 117,TG 110,HDL 34,LDL 63. Reduce shrimp. Needs to keep LDL less than 55, and HDL more than 40, with prior NC and mutiple high risk conditions . Switched atorvastat in 80 mg to rosuvastat in 40 mg HS 03/08/22. Had 08/30/2022 LIPID-CHOL 102 TRIG 98 HDL 31 LDL 52 Obtain FLP, CMP, Mg, TSH, CBC. Aortic valve stenosis 60 [id number] I35.0 Mild. Had 09/25/22 US, echocardio gram:Study quality: Technical difficult. Technical limitation s- poor acoustic window. LV chamber size is normal. LV wall thickness is moderately increased. The estimated left ventricle ejection fraction is 60-65% (normal). LV relaxation is impaired. The aortic valve is moderately calcified. There is mild aortic root calcificat ion. There is mild aortic valve stenosis. There is mild calcificat ion of the mitral valve leaflets. There is minimal pulmonic regurgitat ion. Sinus Bradycardi a. Had ( 2) ECHO. Study quality: Technicall y difficult. Technical limitation s- poor acoustic window. LV chamber size is normal. There is borderline LV hypertroph y. The estimated left ventricle ejection fraction is 55-60% (normal). LV relaxation is impaired. The aortic valve is mildly calcified. There is mild aortic root calcificat ion. There is mild aortic valve stenosis. The mitral valve leaflet is mildly thickened. There is mild triscupid regurgitat ion. Sinus Bradycardi a. Had ECHO done in 09/12/19 showed LV wall thickness is mild to moderately increased. EF 50-55%(nor mal). LV relaxation is impaired. The aortic valve is moderately calcified. There is mild aortic valve stenosis. There is mild calcificat ion of mitral valve anterior leaflet. There is mild mitral annular calcificat ion. There is mild tricuspid regurgitat ion. Echo 06/12/2019 Technicall y difficult study with limited views The mitral valve has thickened leaflets. Grade I diastolic dysfunctio n of the LV (impaired relaxation pattern). LV wall thickness is borderline increased. There is trace mitral valve regurgitat ion. There is mild aortic valve sclerosis. There is trace aortic valve regurgitat ion. There is mild aortic valve stenosis with a peak velocity of 239 cm/s, mean gradient of 12 mmHg, and aortic valve area of 1.6 cm2. LV chamber dimension is normal. LVSF is normal with an estimated EF of 55-60% Dizziness [id number] R42 Possibly vasovagal, with bowel movement attempts and constipati on. Has started laxative with resolution of constipati on. Had 09/25/22 US, echocardio gram:Study quality: Technical difficult. Technical limitation s- poor acoustic window. LV chamber size is normal. LV wall thickness is moderately increased. The estimated left ventricle ejection fraction is 60-65% (normal). LV relaxation is impaired. The aortic valve is moderately calcified. There is mild aortic root calcificat ion. There is mild aortic valve stenosis. There is mild calcificat ion of the mitral valve leaflets. There is minimal pulmonic regurgitat ion. Sinus Bradycardi a. Had 5 day event monitor done 09/30/19: Unremarkab le event monitor. Symptoms did not correlate to any arrhythmia . The symptoms correlated with normal sinus rhythm. 6 Manual recordings correlated with normal sinus rhythm with no ectopy. Health Concerns Section Related Observation LastModified by Organization Detai ls LastModified Time None Recorded Concern Status LastModified by Organization Details LastModified Time None Recorded Advance Directives Directive None Recorded Payers Encounter Date Sequence Insurance Name Policy Number Policy Antonio Covered Member ID Antonio Member ID Guarantor Name 06/28/2021 1 [place] Jose Adair [id number] Jose Adair 06/28/2021 2 [employer] [place] (MEDICARE SUPPLEMENT) Jose Adair [id number] Jose Adair 09/07/2021 1 [place] Jose Adair [id number] Jose Adair 09/07/2021 2 [employer] [place] (MEDICARE SUPPLEMENT) Jose Adair [id number] Jose Adair 03/08/2022 1 [place] Jose Adair [id number] Jose Adair 03/08/2022 2 [employer] [place] (MEDICARE SUPPLEMENT) Jose Adair [id number] Jose Adair 09/06/2022 1 [place] Jose Birmingham Mana [id number] Jose Adair 09/06/2022 2 [employer] (MEDICARE SUPPLEMENT) Jose Vinnie Mana [id number] Jose Birmingham Mana 10/02/2022 1 [place] Jose Bunchish [id number] Jose Birmingham Mana 10/02/2022 2 [employer] (MEDICARE SUPPLEMENT) Jose Adair [id number] Jose Vinnie Mana Notes Date Note Type Note Provider Name and Address Organization Details Recorded Time 06/28/2021 text/html 06/28/2021 CC: Chest pain 76 year-old man with h/o CAD s/p 4 v. CABG on 06/16/19, s/p NC 06/12/19, aortic stenosis, Hypertension, Hyperlipidemia, former tobacco use (quit 1973), is here for follow up. Pt last seen in clinic 6 months ago 12/28/20. He reports occasional exertional chest pain, shortness of breath, orthopnea, palpitation, or syncope. Reports no dizziness with walking. No edema. He was in [facility] 07/08/19 because of 2 episodes dizziness on 07/08/19 for a few minutes. Obtained records/l[facility] [place] [facility] 07/07/2019: negative trop I and CXR without acute findings, BP mildly elevated. He was in [facility] 06/12/19 because of non-ST elevation myocardial infarction. He was transferred to [facility] for 4 v. CABG on 06/16/19. Had ECHO done in 06/12/19 showed Grade I diastolic dysfunction of the LV, LV wall thickness is borderline increased. There is trace mitral valve regurgitation. There is mild aortic valve sclerosis. There is trace aortic valve regurgitation. There is mild aortic valve stenosis with a peak velocity of 239 cm/s, mean gradient of 12 mmHg, and aortic valve area of 1.6 cm2. LV chamber dimension is normal. LVSF is normal with an estimated EF of 55-60%. Had Angiogram done in 06/12/19 revealed Three vessel severe CAD with totally occluded right, and collaterals from the left. Normal LVSF. Reports home BP 130-90/60-80. with HR in 60s. {{Patient is active, but is not exercising regularly. Patient is active, exercising regularly. Patient is not very active, and is not exercising. Patient is active, but is exercising regularly with walking.#}} {{No chest pain. Chest pain reported. Exertional chest pain reported. Non-exertio nal chest pain reported. Chest pain reported which is only sometimes associated with activity. Reports chest pain with heavy lifting, not with walking.#}} {{No arm pain.* Arm pain reported.}} {{No neck pain.* Neck pain reported.}} {{No nausea and vomiting.* Nausea and vomiting reported.}} {{No diaphoresis.* Diaphor esis reported.}} {{No shortness of breath at rest.* Shortness of breath at rest reported.}} {{No dyspnea on exertion.* Dyspnea on exertion reported.}} {{No fatigue.* Fatigue reported.}}{{No orthopnea.* Orthopnea reported.}} {{No PND.* PND reported.}} {{No leg swelling.* Leg swelling reported.}} {{No palpitation.* Palpita tion reported.}} {{No dizziness. Dizziness reported. Dizziness reported, occasionally with postural change.#}} {{No syncope .* Syncope reported.}} {{No pre-syncope.* Pre-syn cope reported.}} {{No claudication.* Claudi cation reported.}} {{No major bleeding events.* Major bleeding event reported.}} {{No side effects from medications.* Side effects from medications reported.}} Had Angiogram done in 06/12/19 revealed Three vessel severe CAD with totally occluded right, and collaterals from the left. Normal LVSF. Had ECHO done in 09/12/19 showed LV wall thickness is mild to moderately increased. EF 50-55%(normal). LV relaxation is impaired. The aortic valve is moderately calcified. There is mild aortic valve stenosis. There is mild calcification of mitral valve anterior leaflet. There is mild mitral annular calcification. There is mild tricuspid regurgitation. Had Echo 06/12/2019 Technically difficult study with limited views The mitral valve has thickened leaflets. Grade I diastolic dysfunction of the LV (impaired relaxation pattern). LV wall thickness is borderline increased. There is trace mitral valve regurgitation. There is mild aortic valve sclerosis. There is trace aortic valve regurgitation. There is mild aortic valve stenosis with a peak velocity of 239 cm/s, mean gradient of 12 mmHg, and aortic valve area of 1.6 cm2. LV chamber dimension is normal. LVSF is normal with an estimated EF of 55-60% Had 5 day event monitor done 09/30/19: Unremarkable event monitor. Symptoms did not correlate to any arrhythmia. The symptoms correlated with normal sinus rhythm. 6 Manual recordings correlated with normal sinus rhythm with no ectopy.. Results from this visit, or from the past: Had 06/22/21: Hgb 16.1, Cr 1.21, K 4.4, Mg 1.6, TSH 1.71, gluc 112, hgb A1C 6.3%, HDL 33, LDL 53 Had 12/17/20: hgb 15.5, K 4.5, Cr 1.24, LDL 58, HDL 33 CMP 12/23/2019 GL 102 BUN 23 CR 1.24 NA 140 K 4.9 CH 102 CO2 24 AST 16 ALT 16 ALK PH 72 LIPID 12/23/2019 CH 110 TR 105 HDL 31 LDL 58CBC 12/23/2019 WBC 7.2 RBC 5.45 HGB 15.4 HCT 48.2 PLT 196 07/07/2019 : WBC 7.7,RBC 4.12,HGB 11.7,HCT 37.8,PLT 487 BMP: Na 137,K 4.5,Cl 97,Co2 27,BUN 22,Creati 1.10Glucose 142,Ca 9.3 BMP 06/20/2019 NA 138 K 4.2 CH 100 CO2 28 GL 170 BUN 29 CR 1.0 CA 8.9 CBC w/ diff 06-19-2019 CBC 06/19/2019 WBC 13.8 RBC 3.05 HGB 9.1 HCT 27.6 PLT 150 CMP 06/18/2019 NA 137 K 4.5 CH 101 CO2 24 GL 146 BUN 28 CR 1.4 CA 8.1 AST 222 ALT 13 ALK PH 33 LIPID 06/18/2019 TR 101 CH 126 HDL 42 LDL 64 heparin anti-xa, plasma 06-15-2019 06/15/19 FACTOR XA HEPARIN 0.37 LHC 06/12/2019 Three vessel sever CARD with totally occluded right, and collaterals from the left. Patent [employer] and normal LVSF10/26/2020 EKG ;Sinus bradycardia 46 bpm, First degree AV block ,Poor progression in chest leas ,Non specific inverted T wave inferior leads EKG 12/28/20:Sinus bradycardia,1st degree A-V block,poor R progression in chest leads,non-specific inverted T waves lateral leads,left axis deviation. EKG 04/27/20: Sinus bradycardia. 1st degree AV block. Non-specific inverted T waves lateral leads. Non-specific ST depression lateral leads. 11/04/2019 EKG : Sinus Bradycardia, 57 bpm, First degree AV block, Low voltage in chest leads ,Poor R progression in chest leads ,Non specific inverteted T wave lateral leads. EKG 06/19/2019 Normal sinus rhythm. Moderate voltage criteria for LVH, may be normal variant. ST& T wave abnormality, consider lateral ischemia. Abnormal ECG. When compared with ECG of 14 JUN 2019 no significant change was found 09/30/19 EVENT MONITOR: Unremarkable event monitor. Symptoms did not correlate to any arrhythmia. The symptoms correlated with normal sinus rhythm. 6 Manual recordings correlated with normal sinus rhythm with no ectopy. 06/14/2019 : Carotid Ultrasound : No significant stenosis in either internal carotid artery [facility] 06/12/2019 Three vessel severe CARD with totally occluded right, and collaterals from the left. Patent [place] and normal LVSF 09/12/19 ECHO: LV chamber size is normal. LV wall thickness is mild to moderately increased. The estimated left ventricle ejection fraction is 50-55%(normal). LV relaxation is impaired. The aortic valve is moderately calcified. There is mild aortic valve stenosis. There is mild calcification of mitral valve anterior leaflet. There is mild annular calcification. There is mild tricuspid regurgitation. Echo 06/12/2019 Technically difficult study with limited views The mitral valve has thickened leaflets. Grade I diastolic dysfunction of the LV (impaired relaxation pattern). LV wall thickness is borderline increased. There is trace mitral valve regurgitation. There is mild aortic valve sclerosis. There is trace aortic valve regurgitation. There is mild aortic valve stenosis with a peak velocity of 239 cm/s, mean gradient of 12 mmHg, and aortic valve area of 1.6 cm2. LV chamber dimension is normal. LVSF is normal with an estimated EF of 55-60% XR, chest 07-07-2019 XR chest 07/07/2019 No acute cardiopulmonary findings XR chest 06/20/2019 Moderate cardiomegaly. Normal pulmonary vascularity Zenon Da Silva [place], [place] - [facility] 06/28/2021 11:58:36 09/07/2021 text/html 09/07/21 CC: Chest pain 76 year-old man with h/o CAD s/p 4 v. CABG on 06/16/19, s/p NC 06/12/19, aortic stenosis, Hypertension, Hyperlipidemia, former tobacco use (quit 1973), is here for follow up. Pt last seen in clinic 2 months ago. He reports no exertional chest pain, shortness of breath, orthopnea, palpitation, or syncope. Reports no dizziness with walking. No edema. He was in [facility] 07/08/19 because of 2 episodes dizziness on 07/08/19 for a few minutes. Obtained records/labs [place] [facility] 07/07/2019: negative trop I and CXR without acute findings, BP mildly elevated. He was in [facility] 06/12/19 because of non-ST elevation myocardial infarction. He was transferred to [facility] for 4 v. CABG on 06/16/19. Had ECHO done in 06/12/19 showed Grade I diastolic dysfunction of the LV, LV wall thickness is borderline increased. There is trace mitral valve regurgitation. There is mild aortic valve sclerosis. There is trace aortic valve regurgitation. There is mild aortic valve stenosis with a peak velocity of 239 cm/s, mean gradient of 12 mmHg, and aortic valve area of 1.6 cm2. LV chamber dimension is normal. LVSF is normal with an estimated EF of 55-60%. Had Angiogram done in 06/12/19 revealed Three vessel severe CAD with totally occluded right, and collaterals from the left. Normal LVSF. Reports home BP 130-90/60-80. with HR in 60s. {{Patient is active, but is not exercising regularly. Patient is active, exercising regularly. Patient is not very active, and is not exercising. Patient is active, but is exercising regularly with walking.#}} {{No chest pain.* Chest pain reported. Exertional chest pain reported. Non-exertio nal chest pain reported. Chest pain reported which is only sometimes associated with activity.}} {{No arm pain.* Arm pain reported.}} {{No neck pain.* Neck pain reported.}} {{No nausea and vomiting.* Nausea and vomiting reported.}} {{No diaphoresis.* Diaphor esis reported.}} {{No shortness of breath at rest.* Shortness of breath at rest reported.}} {{No dyspnea on exertion.* Dyspnea on exertion reported.}} {{No fatigue.* Fatigue reported.}}{{No orthopnea.* Orthopnea reported.}} {{No PND.* PND reported.}} {{No leg swelling.* Leg swelling reported.}} {{No palpitation.* Palpita tion reported.}} {{No dizziness.* Dizziness reported.}} {{No syncope .* Syncope reported.}} {{No pre-syncope.* Pre-syn cope reported.}} {{No claudication.* Claudi cation reported.}} {{No major bleeding events.* Major bleeding event reported.}} {{No side effects from medications.* Side effects from medications reported.}} Had (07/20/21) Exercise Stress Nuclear Test. Negative stress test for ischemia. Normal LV systolic function. Artifact noted. No previous study. Exercise tolerance: Below Average. Had Angiogram done in 06/12/19 revealed Three vessel severe CAD with totally occluded right, and collaterals from the left. Normal LVSF. Had (07/13/2021) ECHO. Study quality: Technically difficult. Technical limitations- poor acoustic window. LV chamber size is normal. There is borderline LV hypertrophy. The estimated left ventricle ejection fraction is 55-60% (normal). LV relaxation is impaired. The aortic valve is mildly calcified. There is mild aortic root calcification. There is mild aortic valve stenosis. The mitral valve leaflet is mildly thickened. There is mild triscupid regurgitation. Sinus Bradycardia. Had ECHO done in 09/12/19 showed LV wall thickness is mild to moderately increased. EF 50-55%(normal). LV relaxation is impaired. The aortic valve is moderately calcified. There is mild aortic valve stenosis. There is mild calcification of mitral valve anterior leaflet. There is mild mitral annular calcification. There is mild tricuspid regurgitation. Had Echo 06/12/2019 Technically difficult study with limited views The mitral valve has thickened leaflets. Grade I diastolic dysfunction of the LV (impaired relaxation pattern). LV wall thickness is borderline increased. There is trace mitral valve regurgitation. There is mild aortic valve sclerosis. There is trace aortic valve regurgitation. There is mild aortic valve stenosis with a peak velocity of 239 cm/s, mean gradient of 12 mmHg, and aortic valve area of 1.6 cm2. LV chamber dimension is normal. LVSF is normal with an estimated EF of 55-60% Had 5 day event monitor done 09/30/19: Unremarkable event monitor. Symptoms did not correlate to any arrhythmia. The symptoms correlated with normal sinus rhythm. 6 Manual recordings correlated with normal sinus rhythm with no ectopy.. Results from this visit, or from the past: Had 06/22/21: Hgb 16.1, Cr 1.21, K 4.4, Mg 1.6, TSH 1.71, gluc 112, hgb A1C 6.3%, HDL 33, LDL 53 Had 12/17/20: hgb 15.5, K 4.5, Cr 1.24, LDL 58, HDL 33 CMP 12/23/2019 GL 102 BUN 23 CR 1.24 NA 140 K 4.9 CH 102 CO2 24 AST 16 ALT 16 ALK PH 72 LIPID 12/23/2019 CH 110 TR 105 HDL 31 LDL 58CBC 12/23/2019 WBC 7.2 RBC 5.45 HGB 15.4 HCT 48.2 PLT 4016007/07/2019 : WBC 7.7,RBC 4.12,HGB 11.7,HCT 37.8,PLT 487 BMP: Na 137,K 4.5,Cl 97,Co2 27,BUN 22,Creati 1.10Glucose 142,Ca 9.3 BMP 06/20/2019 NA 138 K 4.2 CH 100 CO2 28 GL 170 BUN 29 CR 1.0 CA 8.9 CBC w/ diff 06-19-2019 CBC 06/19/2019 WBC 13.8 RBC 3.05 HGB 9.1 HCT 27.6 PLT 150 CMP 06/18/2019 NA 137 K 4.5 CH 101 CO2 24 GL 146 BUN 28 CR 1.4 CA 8.1 AST 222 ALT 13 ALK PH 33 LIPID 06/18/2019 TR 101 CH 126 HDL 42 LDL 64 heparin anti-xa, plasma 06-15-2019 06/15/19 FACTOR XA HEPARIN 0.37 C 06/12/2019 Three vessel sever CARD with totally occluded right, and collaterals from the left. Patent [employer] and normal LVSF10/26/2020 EKG ;Sinus bradycardia 46 bpm, First degree AV block ,Poor progression in chest leas ,Non specific inverted T wave inferior leads EKG 08/17/21:Sinus bradycardia,1st degree A-V block,poor R progression in chest leads,non-specific inverted T waves lateral leads,left axis deviation. EKG 04/27/20: Sinus bradycardia. 1st degree AV block. Non-specific inverted T waves lateral leads. Non-specific ST depression lateral leads. 11/04/2019 EKG : Sinus Bradycardia, 57 bpm, First degree AV block, Low voltage in chest leads ,Poor R progression in chest leads ,Non specific inverteted T wave lateral leads. EKG 06/19/2019 Normal sinus rhythm. Moderate voltage criteria for LVH, may be normal variant. ST& T wave abnormality, consider lateral ischemia. Abnormal ECG. When compared with ECG of 14 JUN 2019 no significant change was found (07/20/21) Exercise Stress Nuclear Test.Negative stress test for ischemia. Normal LV systolic function. Artifact noted. No previous study. Exercise tolerance: Below Average. 09/30/19 EVENT MONITOR: Unremarkable event monitor. Symptoms did not correlate to any arrhythmia. The symptoms correlated with normal sinus rhythm. 6 Manual recordings correlated with normal sinus rhythm with no ectopy. 06/14/2019 : Carotid Ultrasound : No significant stenosis in either internal carotid artery [facility] 06/12/2019 Three vessel severe CARD with totally occluded right, and collaterals from the left. Patent [place] and normal LVSF (07/13/2021) ECHO.Study quality: Technically difficult. Technical limitations- poor acoustic window. LV chamber size is normal. There is borderline LV hypertrophy. The estimated left ventricle ejection fraction is 55-60% (normal). LV relaxation is impaired. The aortic valve is mildly calcified. There is mild aortic root calcification. There is mild aortic valve stenosis. The mitral valve leaflet is mildly thickened. There is mild triscupid regurgitation. Sinus Bradycardia. 09/12/19 ECHO: LV chamber size is normal. LV wall thickness is mild to moderately increased. The estimated left ventricle ejection fraction is 50-55%(normal). LV relaxation is impaired. The aortic valve is moderately calcified. There is mild aortic valve stenosis. There is mild calcification of mitral valve anterior leaflet. There is mild annular calcification. There is mild tricuspid regurgitation. Echo 06/12/2019 Technically difficult study with limited views The mitral valve has thickened leaflets. Grade I diastolic dysfunction of the LV (impaired relaxation pattern). LV wall thickness is borderline increased. There is trace mitral valve regurgitation. There is mild aortic valve sclerosis. There is trace aortic valve regurgitation. There is mild aortic valve stenosis with a peak velocity of 239 cm/s, mean gradient of 12 mmHg, and aortic valve area of 1.6 cm2. LV chamber dimension is normal. LVSF is normal with an estimated EF of 55-60% XR chest 07/07/2019 No acute cardiopulmonary findings XR chest 06/20/2019 Moderate cardiomegaly. Normal pulmonary vascularity Zenon Da Silva [facility] 09/07/2021 14:57:31 03/08/2022 text/html 03/08/22 CC: Chest pain 76 year-old man with h/o CAD s/p 4 v. CABG on 06/16/19, s/p NC 06/12/19, aortic stenosis, Hypertension, Hyperlipidemia, former tobacco use (quit 1973), is here for follow up. Pt last seen in clinic 6 months ago. He reports no exertional chest pain, shortness of breath, orthopnea, palpitation, or syncope. Reports no dizziness with walking. No edema. He was in [facility] ED 07/08/19 because of 2 episodes dizziness on 07/08/19 for a few minutes. Obtained records/labs [place] [facility] 07/07/2019: negative trop I and CXR without acute findings, BP mildly elevated. He was in [facility] 06/12/19 because of non-ST elevation myocardial infarction. He was transferred to [facility] for 4 v. CABG on 06/16/19. Had ECHO done in 06/12/19 showed Grade I diastolic dysfunction of the LV, LV wall thickness is borderline increased. There is trace mitral valve regurgitation. There is mild aortic valve sclerosis. There is trace aortic valve regurgitation. There is mild aortic valve stenosis with a peak velocity of 239 cm/s, mean gradient of 12 mmHg, and aortic valve area of 1.6 cm2. LV chamber dimension is normal. LVSF is normal with an estimated EF of 55-60%. Had Angiogram done in 06/12/19 revealed Three vessel severe CAD with totally occluded right, and collaterals from the left. Normal LVSF. Reports home BP 116/80. with HR in 60s. {{Patient is active, but is not exercising regularly. Patient is active, exercising regularly.* Patient is not very active, and is not exercising.}} He walks for 15 min. daily. {{No chest pain.* Chest pain reported. Exertional chest pain reported. Non-exertio nal chest pain reported. Chest pain reported which is only sometimes associated with activity.}} {{No arm pain.* Arm pain reported.}} {{No neck pain.* Neck pain reported.}} {{No nausea and vomiting.* Nausea and vomiting reported.}} {{No diaphoresis.* Diaphor esis reported.}} {{No shortness of breath at rest.* Shortness of breath at rest reported.}} {{No dyspnea on exertion.* Dyspnea on exertion reported.}} {{No fatigue.* Fatigue reported.}}{{No orthopnea.* Orthopnea reported.}} {{No PND.* PND reported.}} {{No leg swelling.* Leg swelling reported.}} {{No palpitation.* Palpita tion reported.}} {{No dizziness.* Dizziness reported.}} {{No syncope .* Syncope reported.}} {{No pre-syncope.* Pre-syn cope reported.}} {{No claudication.* Claudi cation reported.}} {{No major bleeding events.* Major bleeding event reported.}} {{No side effects from medications.* Side effects from medications reported.}} Had (07/20/21) Exercise Stress Nuclear Test. Negative stress test for ischemia. Normal LV systolic function. Artifact noted. No previous study. Exercise tolerance: Below Average. Had Angiogram done in 06/12/19 revealed Three vessel severe CAD with totally occluded right, and collaterals from the left. Normal LVSF. Had (07/13/2021) ECHO. Study quality: Technically difficult. Technical limitations- poor acoustic window. LV chamber size is normal. There is borderline LV hypertrophy. The estimated left ventricle ejection fraction is 55-60% (normal). LV relaxation is impaired. The aortic valve is mildly calcified. There is mild aortic root calcification. There is mild aortic valve stenosis. The mitral valve leaflet is mildly thickened. There is mild triscupid regurgitation. Sinus Bradycardia. Had ECHO done in 09/12/19 showed LV wall thickness is mild to moderately increased. EF 50-55%(normal). LV relaxation is impaired. The aortic valve is moderately calcified. There is mild aortic valve stenosis. There is mild calcification of mitral valve anterior leaflet. There is mild mitral annular calcification. There is mild tricuspid regurgitation. Had Echo 06/12/2019 Technically difficult study with limited views The mitral valve has thickened leaflets. Grade I diastolic dysfunction of the LV (impaired relaxation pattern). LV wall thickness is borderline increased. There is trace mitral valve regurgitation. There is mild aortic valve sclerosis. There is trace aortic valve regurgitation. There is mild aortic valve stenosis with a peak velocity of 239 cm/s, mean gradient of 12 mmHg, and aortic valve area of 1.6 cm2. LV chamber dimension is normal. LVSF is normal with an estimated EF of 55-60% Had 5 day event monitor done 09/30/19: Unremarkable event monitor. Symptoms did not correlate to any arrhythmia. The symptoms correlated with normal sinus rhythm. 6 Manual recordings correlated with normal sinus rhythm with no ectopy.. Results from this visit, or from the past: 12/29/21:WBC 6.2,RBC 5.57,Hgb 16.5,HCT 49.7,PLT 176.12/29/21:Na 139,K 4.6,CL 100,CO2 24,GLU 118,BUN 23,Cr 1.27,ALT 16,AST 24.12/29/21:TC 117,TG 110,HDL 34,LDL 63. Had 06/22/21: Hgb 16.1, Cr 1.21, K 4.4, Mg 1.6, TSH 1.71, gluc 112, hgb A1C 6.3%, HDL 33, LDL 53 Had 12/17/20: hgb 15.5, K 4.5, Cr 1.24, LDL 58, HDL 33 CMP 12/23/2019 GL 102 BUN 23 CR 1.24 NA 140 K 4.9 CH 102 CO2 24 AST 16 ALT 16 ALK PH 72 LIPID 12/23/2019 CH 110 TR 105 HDL 31 LDL 58CBC 12/23/2019 WBC 7.2 RBC 5.45 HGB 15.4 HCT 48.2 PLT 0504807/07/2019 : WBC 7.7,RBC 4.12,HGB 11.7,HCT 37.8,PLT 487 BMP: Na 137,K 4.5,Cl 97,Co2 27,BUN 22,Creati 1.10Glucose 142,Ca 9.3 BMP 06/20/2019 NA 138 K 4.2 CH 100 CO2 28 GL 170 BUN 29 CR 1.0 CA 8.9 CBC w/ diff 06-19-2019 CBC 06/19/2019 WBC 13.8 RBC 3.05 HGB 9.1 HCT 27.6 PLT 150 CMP 06/18/2019 NA 137 K 4.5 CH 101 CO2 24 GL 146 BUN 28 CR 1.4 CA 8.1 AST 222 ALT 13 ALK PH 33 LIPID 06/18/2019 TR 101 CH 126 HDL 42 LDL 64 heparin anti-xa, plasma 06-15-2019 06/15/19 FACTOR XA HEPARIN 0.37 [facility] 06/12/2019 Three vessel sever CARD with totally occluded right, and collaterals from the left. Patent [place] and normal LVSF EKG 12/28/20:Sinus bradycardia,1st degree A-V block,poor R progression in chest leads,non-specific inverted T waves lateral leads,left axis deviation. 10/26/2020 EKG ;Sinus bradycardia 46 bpm, First degree AV block ,Poor progression in chest leas ,Non specific inverted T wave inferior leads EKG 12/28/20:Sinus bradycardia,1st degree A-V block,poor R progression in chest leads,non-specific inverted T waves lateral leads,left axis deviation. EKG 04/27/20: Sinus bradycardia. 1st degree AV block. Non-specific inverted T waves lateral leads. Non-specific ST depression lateral leads. 11/04/2019 EKG : Sinus Bradycardia, 57 bpm, First degree AV block, Low voltage in chest leads ,Poor R progression in chest leads ,Non specific inverteted T wave lateral leads. EKG 06/19/2019 Normal sinus rhythm. Moderate voltage criteria for LVH, may be normal variant. ST& T wave abnormality, consider lateral ischemia. Abnormal ECG. When compared with ECG of 14 JUN 2019 no significant change was found (07/20/21) Exercise Stress Nuclear Test.Negative stress test for ischemia. Normal LV systolic function. Artifact noted. No previous study. Exercise tolerance: Below Average. 09/30/19 EVENT MONITOR: Unremarkable event monitor. Symptoms did not correlate to any arrhythmia. The symptoms correlated with normal sinus rhythm. 6 Manual recordings correlated with normal sinus rhythm with no ectopy. 06/14/2019 : Carotid Ultrasound : No significant stenosis in either internal carotid artery [facility] 06/12/2019 Three vessel severe CARD with totally occluded right, and collaterals from the left. Patent [place] and normal LVSF (07/13/2021) ECHO.Study quality: Technically difficult. Technical limitations- poor acoustic window. LV chamber size is normal. There is borderline LV hypertrophy. The estimated left ventricle ejection fraction is 55-60% (normal). LV relaxation is impaired. The aortic valve is mildly calcified. There is mild aortic root calcification. There is mild aortic valve stenosis. The mitral valve leaflet is mildly thickened. There is mild triscupid regurgitation. Sinus Bradycardia. 09/12/19 ECHO: LV chamber size is normal. LV wall thickness is mild to moderately increased. The estimated left ventricle ejection fraction is 50-55%(normal). LV relaxation is impaired. The aortic valve is moderately calcified. There is mild aortic valve stenosis. There is mild calcification of mitral valve anterior leaflet. There is mild annular calcification. There is mild tricuspid regurgitation. Echo 06/12/2019 Technically difficult study with limited views The mitral valve has thickened leaflets. Grade I diastolic dysfunction of the LV (impaired relaxation pattern). LV wall thickness is borderline increased. There is trace mitral valve regurgitation. There is mild aortic valve sclerosis. There is trace aortic valve regurgitation. There is mild aortic valve stenosis with a peak velocity of 239 cm/s, mean gradient of 12 mmHg, and aortic valve area of 1.6 cm2. LV chamber dimension is normal. LVSF is normal with an estimated EF of 55-60% XR chest 07/07/2019 No acute cardiopulmonary findings XR chest 06/20/2019 Moderate cardiomegaly. Normal pulmonary vascularity Zenon Da Silva [place], [place] - [facility] 03/08/2022 15:15:21 09/06/2022 text/html 09/05/22 CC: Chest pain 77 year-old man with h/o CAD s/p 4 v. CABG on 06/16/19, s/p NC 06/12/19, aortic stenosis, Hypertension, Hyperlipidemia, former tobacco use (quit 1973), is here for follow up. Pt last seen in clinic 6 months ago. He reports no exertional chest pain, shortness of breath, orthopnea, palpitation, or syncope. Reports no dizziness with walking. No edema. He was in [facility] ED 07/08/19 because of 2 episodes dizziness on 07/08/19 for a few minutes. Obtained records/labs [place] [facility] 07/07/2019: negative trop I and CXR without acute findings, BP mildly elevated. He was in [facility] 06/12/19 because of non-ST elevation myocardial infarction. He was transferred to [facility] for 4 v. CABG on 06/16/19. Had ECHO done in 06/12/19 showed Grade I diastolic dysfunction of the LV, LV wall thickness is borderline increased. There is trace mitral valve regurgitation. There is mild aortic valve sclerosis. There is trace aortic valve regurgitation. There is mild aortic valve stenosis with a peak velocity of 239 cm/s, mean gradient of 12 mmHg, and aortic valve area of 1.6 cm2. LV chamber dimension is normal. LVSF is normal with an estimated EF of 55-60%. Had Angiogram done in 06/12/19 revealed Three vessel severe CAD with totally occluded right, and collaterals from the left. Normal LVSF. Reports home BP 116/80. with HR in 60s. {{Patient is active, but is not exercising regularly. Patient is active, exercising regularly.* Patient is not very active, and is not exercising.}} He walks for 15 min. daily. Had (07/20/21) Exercise Stress Nuclear Test. Negative stress test for ischemia. Normal LV systolic function. Artifact noted. No previous study. Exercise tolerance: Below Average. Had Angiogram done in 06/12/19 revealed Three vessel severe CAD with totally occluded right, and collaterals from the left. Normal LVSF. Had (07/13/2021) ECHO. Study quality: Technically difficult. Technical limitations- poor acoustic window. LV chamber size is normal. There is borderline LV hypertrophy. The estimated left ventricle ejection fraction is 55-60% (normal). LV relaxation is impaired. The aortic valve is mildly calcified. There is mild aortic root calcification. There is mild aortic valve stenosis. The mitral valve leaflet is mildly thickened. There is mild triscupid regurgitation. Sinus Bradycardia. Had ECHO done in 09/12/19 showed LV wall thickness is mild to moderately increased. EF 50-55%(normal). LV relaxation is impaired. The aortic valve is moderately calcified. There is mild aortic valve stenosis. There is mild calcification of mitral valve anterior leaflet. There is mild mitral annular calcification. There is mild tricuspid regurgitation. Had Echo 06/12/2019 Technically difficult study with limited views The mitral valve has thickened leaflets. Grade I diastolic dysfunction of the LV (impaired relaxation pattern). LV wall thickness is borderline increased. There is trace mitral valve regurgitation. There is mild aortic valve sclerosis. There is trace aortic valve regurgitation. There is mild aortic valve stenosis with a peak velocity of 239 cm/s, mean gradient of 12 mmHg, and aortic valve area of 1.6 cm2. LV chamber dimension is normal. LVSF is normal with an estimated EF of 55-60% Had 5 day event monitor done 09/30/19: Unremarkable event monitor. Symptoms did not correlate to any arrhythmia. The symptoms correlated with normal sinus rhythm. 6 Manual recordings correlated with normal sinus rhythm with no ectopy.. Results from this visit, or from the past: 3CBC-WBC 6.5 RBC 5.28 HGB 15.4 HCT 46.3 PLT 172CMP-GL 114 BUN 21 CR 1.41 NA 142 K 4.8 CA 9.5LIPID-CHOL 102 TRIG 98 HDL 31 LDL 52TSH-1.850MAG-2.0 12/29/21:WBC 6.2,RBC 5.57,Hgb 16.5,HCT 49.7,PLT 176.12/29/21:Na 139,K 4.6,CL 100,CO2 24,GLU 118,BUN 23,Cr 1.27,ALT 16,AST 24.12/29/21:TC 117,TG 110,HDL 34,LDL 63. Had 06/22/21: Hgb 16.1, Cr 1.21, K 4.4, Mg 1.6, TSH 1.71, gluc 112, hgb A1C 6.3%, HDL 33, LDL 53 Had 12/17/20: hgb 15.5, K 4.5, Cr 1.24, LDL 58, HDL 33 CMP 12/23/2019 GL 102 BUN 23 CR 1.24 NA 140 K 4.9 CH 102 CO2 24 AST 16 ALT 16 ALK PH 72 LIPID 12/23/2019 CH 110 TR 105 HDL 31 LDL 58CBC 12/23/2019 WBC 7.2 RBC 5.45 HGB 15.4 HCT 48.2 PLT 8205207/07/2019 : WBC 7.7,RBC 4.12,HGB 11.7,HCT 37.8,PLT 487 BMP: Na 137,K 4.5,Cl 97,Co2 27,BUN 22,Creati 1.10Glucose 142,Ca 9.3 BMP 06/20/2019 NA 138 K 4.2 CH 100 CO2 28 GL 170 BUN 29 CR 1.0 CA 8.9 CBC w/ diff 06-19-2019 CBC 06/19/2019 WBC 13.8 RBC 3.05 HGB 9.1 HCT 27.6 PLT 150 CMP 06/18/2019 NA 137 K 4.5 CH 101 CO2 24 GL 146 BUN 28 CR 1.4 CA 8.1 AST 222 ALT 13 ALK PH 33 LIPID 06/18/2019 TR 101 CH 126 HDL 42 LDL 64 heparin anti-xa, plasma 06-15-2019 06/15/19 FACTOR XA HEPARIN 0.37 [facility] 06/12/2019 Three vessel sever CARD with totally occluded right, and collaterals from the left. Patent [place] and normal LVSF EKG 12/28/20:Sinus bradycardia,1st degree A-V block,poor R progression in chest leads,non-specific inverted T waves lateral leads,left axis deviation. 10/26/2020 EKG ;Sinus bradycardia 46 bpm, First degree AV block ,Poor progression in chest leas ,Non specific inverted T wave inferior leads EKG 12/28/20:Sinus bradycardia,1st degree A-V block,poor R progression in chest leads,non-specific inverted T waves lateral leads,left axis deviation. EKG 04/27/20: Sinus bradycardia. 1st degree AV block. Non-specific inverted T waves lateral leads. Non-specific ST depression lateral leads. 11/04/2019 EKG : Sinus Bradycardia, 57 bpm, First degree AV block, Low voltage in chest leads ,Poor R progression in chest leads ,Non specific inverteted T wave lateral leads. EKG 06/19/2019 Normal sinus rhythm. Moderate voltage criteria for LVH, may be normal variant. ST& T wave abnormality, consider lateral ischemia. Abnormal ECG. When compared with ECG of 14 JUN 2019 no significant change was found (07/20/21) Exercise Stress Nuclear Test.Negative stress test for ischemia. Normal LV systolic function. Artifact noted. No previous study. Exercise tolerance: Below Average. 09/30/19 EVENT MONITOR: Unremarkable event monitor. Symptoms did not correlate to any arrhythmia. The symptoms correlated with normal sinus rhythm. 6 Manual recordings correlated with normal sinus rhythm with no ectopy. 06/14/2019 : Carotid Ultrasound : No significant stenosis in either internal carotid artery [facility] 06/12/2019 Three vessel severe CARD with totally occluded right, and collaterals from the left. Patent [place] and normal LVSF (07/13/2021) ECHO.Study quality: Technically difficult. Technical limitations- poor acoustic window. LV chamber size is normal. There is borderline LV hypertrophy. The estimated left ventricle ejection fraction is 55-60% (normal). LV relaxation is impaired. The aortic valve is mildly calcified. There is mild aortic root calcification. There is mild aortic valve stenosis. The mitral valve leaflet is mildly thickened. There is mild triscupid regurgitation. Sinus Bradycardia. 09/12/19 ECHO: LV chamber size is normal. LV wall thickness is mild to moderately increased. The estimated left ventricle ejection fraction is 50-55%(normal). LV relaxation is impaired. The aortic valve is moderately calcified. There is mild aortic valve stenosis. There is mild calcification of mitral valve anterior leaflet. There is mild annular calcification. There is mild tricuspid regurgitation. Echo 06/12/2019 Technically difficult study with limited views The mitral valve has thickened leaflets. Grade I diastolic dysfunction of the LV (impaired relaxation pattern). LV wall thickness is borderline increased. There is trace mitral valve regurgitation. There is mild aortic valve sclerosis. There is trace aortic valve regurgitation. There is mild aortic valve stenosis with a peak velocity of 239 cm/s, mean gradient of 12 mmHg, and aortic valve area of 1.6 cm2. LV chamber dimension is normal. LVSF is normal with an estimated EF of 55-60% XR chest 07/07/2019 No acute cardiopulmonary findings XR chest 06/20/2019 Moderate cardiomegaly. Normal pulmonary vascularity Zenon Da Silva [place], [place] - [facility] 09/06/2022 11:45:29 10/02/2022 text/html 10/02/22 CC: Chest pain 77 year-old man with h/o CAD s/p 4 v. CABG on 06/16/19, s/p NC 06/12/19, aortic stenosis, Hypertension, Hyperlipidemia, former tobacco use (quit 1973), is here for follow up. Pt last seen in clinic 1 month1 ago. He had sharp R posterior shoulder neck pain nearly resolved. He reports no exertional chest pain, stable exertional shortness of breath, no orthopnea, palpitation, or syncope. Reports no dizziness with walking. No edema. He was in [facility] ED 07/08/19 because of 2 episodes dizziness on 07/08/19 for a few minutes. Obtained records/labs [facility] 07/07/2019: negative trop I and CXR without acute findings, BP mildly elevated. He was in [facility] 06/12/19 because of non-ST elevation myocardial infarction. He was transferred to [facility] for 4 v. CABG on 06/16/19. Had ECHO done in 06/12/19 showed Grade I diastolic dysfunction of the LV, LV wall thickness is borderline increased. There is trace mitral valve regurgitation. There is mild aortic valve sclerosis. There is trace aortic valve regurgitation. There is mild aortic valve stenosis with a peak velocity of 239 cm/s, mean gradient of 12 mmHg, and aortic valve area of 1.6 cm2. LV chamber dimension is normal. LVSF is normal with an estimated EF of 55-60%. Had Angiogram done in 06/12/19 revealed Three vessel severe CAD with totally occluded right, and collaterals from the left. Normal LVSF. Reports home BP 116/80. with HR in 60s. {{Patient is active, but is not exercising regularly. Patient is active, exercising regularly.* Patient is not very active, and is not exercising.}} He walks for 15 min. daily. Had (07/20/21) Exercise Stress Nuclear Test. Negative stress test for ischemia. Normal LV systolic function. Artifact noted. No previous study. Exercise tolerance: Below Average. Had Angiogram done in 06/12/19 revealed Three vessel severe CAD with totally occluded right, and collaterals from the left. Normal LVSF. Had 09/25/22 US, echocardiogram:Study quality: Technical difficult. Technical limitations- poor acoustic window. LV chamber size is normal. LV wall thickness is moderately increased. The estimated left ventricle ejection fraction is 60-65% (normal). LV relaxation is impaired. The aortic valve is moderately calcified. There is mild aortic root calcification. There is mild aortic valve stenosis. There is mild calcification of the mitral valve leaflets. There is minimal pulmonic regurgitation. Sinus Bradycardia. Had (07/13/2021) ECHO. Study quality: Technically difficult. Technical limitations- poor acoustic window. LV chamber size is normal. There is borderline LV hypertrophy. The estimated left ventricle ejection fraction is 55-60% (normal). LV relaxation is impaired. The aortic valve is mildly calcified. There is mild aortic root calcification. There is mild aortic valve stenosis. The mitral valve leaflet is mildly thickened. There is mild triscupid regurgitation. Sinus Bradycardia. Had ECHO done in 09/12/19 showed LV wall thickness is mild to moderately increased. EF 50-55%(normal). LV relaxation is impaired. The aortic valve is moderately calcified. There is mild aortic valve stenosis. There is mild calcification of mitral valve anterior leaflet. There is mild mitral annular calcification. There is mild tricuspid regurgitation. Had Echo 06/12/2019 Technically difficult study with limited views The mitral valve has thickened leaflets. Grade I diastolic dysfunction of the LV (impaired relaxation pattern). LV wall thickness is borderline increased. There is trace mitral valve regurgitation. There is mild aortic valve sclerosis. There is trace aortic valve regurgitation. There is mild aortic valve stenosis with a peak velocity of 239 cm/s, mean gradient of 12 mmHg, and aortic valve area of 1.6 cm2. LV chamber dimension is normal. LVSF is normal with an estimated EF of 55-60% Had 5 day event monitor done 09/30/19: Unremarkable event monitor. Symptoms did not correlate to any arrhythmia. The symptoms correlated with normal sinus rhythm. 6 Manual recordings correlated with normal sinus rhythm with no ectopy.. Results from this visit, or from the past: Had 09/26/22: Cr 1.21, K 4.3, Mg 1.7 3CBC-WBC 6.5 RBC 5.28 HGB 15.4 HCT 46.3 PLT 172CMP-GL 114 BUN 21 CR 1.41 NA 142 K 4.8 CA 9.5LIPID-CHOL 102 TRIG 98 HDL 31 LDL 52TSH-1.850MAG-2.0 12/29/21:WBC 6.2,RBC 5.57,Hgb 16.5,HCT 49.7,PLT 176.12/29/21:Na 139,K 4.6,CL 100,CO2 24,GLU 118,BUN 23,Cr 1.27,ALT 16,AST 24.12/29/21:TC 117,TG 110,HDL 34,LDL 63. Had 06/22/21: Hgb 16.1, Cr 1.21, K 4.4, Mg 1.6, TSH 1.71, gluc 112, hgb A1C 6.3%, HDL 33, LDL 53 Had 12/17/20: hgb 15.5, K 4.5, Cr 1.24, LDL 58, HDL 33 CMP 12/23/2019 GL 102 BUN 23 CR 1.24 NA 140 K 4.9 CH 102 CO2 24 AST 16 ALT 16 ALK PH 72 LIPID 12/23/2019 CH 110 TR 105 HDL 31 LDL 58CBC 12/23/2019 WBC 7.2 RBC 5.45 HGB 15.4 HCT 48.2 PLT 5081707/07/2019 : WBC 7.7,RBC 4.12,HGB 11.7,HCT 37.8,PLT 487 BMP: Na 137,K 4.5,Cl 97,Co2 27,BUN 22,Creati 1.10Glucose 142,Ca 9.3 BMP 06/20/2019 NA 138 K 4.2 CH 100 CO2 28 GL 170 BUN 29 CR 1.0 CA 8.9 CBC w/ diff 06-19-2019 CBC 06/19/2019 WBC 13.8 RBC 3.05 HGB 9.1 HCT 27.6 PLT 150 CMP 06/18/2019 NA 137 K 4.5 CH 101 CO2 24 GL 146 BUN 28 CR 1.4 CA 8.1 AST 222 ALT 13 ALK PH 33 LIPID 06/18/2019 TR 101 CH 126 HDL 42 LDL 64 heparin anti-xa, plasma 06-15-2019 06/15/19 FACTOR XA HEPARIN 0.37 [facility] 06/12/2019 Three vessel sever CARD with totally occluded right, and collaterals from the left. Patent [place] and normal LVSF EKG 12/28/20:Sinus bradycardia,1st degree A-V block,poor R progression in chest leads,non-specific inverted T waves lateral leads,left axis deviation. 10/26/2020 EKG ;Sinus bradycardia 46 bpm, First degree AV block ,Poor progression in chest leas ,Non specific inverted T wave inferior leads EKG 12/28/20:Sinus bradycardia,1st degree A-V block,poor R progression in chest leads,non-specific inverted T waves lateral leads,left axis deviation. EKG 04/27/20: Sinus bradycardia. 1st degree AV block. Non-specific inverted T waves lateral leads. Non-specific ST depression lateral leads. 11/04/2019 EKG : Sinus Bradycardia, 57 bpm, First degree AV block, Low voltage in chest leads ,Poor R progression in chest leads ,Non specific inverteted T wave lateral leads. EKG 06/19/2019 Normal sinus rhythm. Moderate voltage criteria for LVH, may be normal variant. ST& T wave abnormality, consider lateral ischemia. Abnormal ECG. When compared with ECG of 14 JUN 2019 no significant change was found (07/20/21) Exercise Stress Nuclear Test.Negative stress test for ischemia. Normal LV systolic function. Artifact noted. No previous study. Exercise tolerance: Below Average. 09/30/19 EVENT MONITOR: Unremarkable event monitor. Symptoms did not correlate to any arrhythmia. The symptoms correlated with normal sinus rhythm. 6 Manual recordings correlated with normal sinus rhythm with no ectopy. 06/14/2019 : Carotid Ultrasound : No significant stenosis in either internal carotid artery [facility] 06/12/2019 Three vessel severe CARD with totally occluded right, and collaterals from the left. Patent [place] and normal LVSF (07/13/2021) ECHO.Study quality: Technically difficult. Technical limitations- poor acoustic window. LV chamber size is normal. There is borderline LV hypertrophy. The estimated left ventricle ejection fraction is 55-60% (normal). LV relaxation is impaired. The aortic valve is mildly calcified. There is mild aortic root calcification. There is mild aortic valve stenosis. The mitral valve leaflet is mildly thickened. There is mild triscupid regurgitation. Sinus Bradycardia. 09/12/19 ECHO: LV chamber size is normal. LV wall thickness is mild to moderately increased. The estimated left ventricle ejection fraction is 50-55%(normal). LV relaxation is impaired. The aortic valve is moderately calcified. There is mild aortic valve stenosis. There is mild calcification of mitral valve anterior leaflet. There is mild annular calcification. There is mild tricuspid regurgitation. Echo 06/12/2019 Technically difficult study with limited views The mitral valve has thickened leaflets. Grade I diastolic dysfunction of the LV (impaired relaxation pattern). LV wall thickness is borderline increased. There is trace mitral valve regurgitation. There is mild aortic valve sclerosis. There is trace aortic valve regurgitation. There is mild aortic valve stenosis with a peak velocity of 239 cm/s, mean gradient of 12 mmHg, and aortic valve area of 1.6 cm2. LV chamber dimension is normal. LVSF is normal with an estimated EF of 55-60% XR chest 07/07/2019 No acute cardiopulmonary findings XR chest 06/20/2019 Moderate cardiomegaly. Normal pulmonary vascularity Zenon Da Silva [facility], [place] - [facility] 10/02/2022 16:09:31
[2024-06-19 06:56] VITALS: BP 126/65; PULSE 67; RESP 17; TEMP 36.1; O2SAT 98; BMI 25.0
[2024-06-19] MEDS: LACTATED RINGERS 1,000 ML 150 ML IV CONT (07:05)
--- NOTE | 2024-06-19 07:15 | P.PNAN_ITS ---
Anes - Initial Pre Proc Eval Procedure: Operation Date: 06/19/24 08:00 Proposed Procedures p Colonoscopy - Emmett Garcia MD Date/Time: 06/19/24 07:15 Surgeon: Emmett Garcia MD Pre Op Diagnosis: fecal abnormalities Patient Data Age: 79 Gender: M Height: 1.68 m Weight: 70.5 kg Last Vital Signs Temp 36.1 C L 06/19/24 06:56 Pulse 67 06/19/24 06:56 Resp 17 06/19/24 06:56 BP 126/65 06/19/24 06:56 Pulse Ox 98 06/19/24 06:56 O2 Del Method Room Air 06/19/24 06:56 Allergies Allergy/AdvReac Type Severity Reaction Status Date / Time loratadine Allergy Unknown Eye Verified 06/19/24 06:53 Irritation sildenafil (From Viagra) AdvReac Nausea Verified 06/19/24 06:53 DECONGESTANT AdvReac Other Uncoded 06/19/24 06:53 Home Medications ?Medication ?Instructions ?Recorded ?Confirmed ?Type prednisolone acetate 1 % eye See Rx Instructions .Route .COMPLEX 06/12/19 06/10/24 History drops,suspension aspirin 81 mg tablet,delayed 81 mg PO DAILY 07/03/19 06/19/24 History release (Adult Low Dose Aspirin) metoprolol succinate 50 mg 50 mg PO DAILY 12/05/21 06/19/24 History tablet,extended release 24 hr psyllium husk 0.4 gram capsule 0.4 g PO DAILY 01/02/22 06/10/24 History (Metamucil) rosuvastatin 40 mg tablet 40 mg PO DAILY 07/04/22 06/10/24 History fluticasone propionate 50 See Rx Instructions .Route 11/16/23 06/10/24 Rx mcg/actuation nasal .COMPLEX #48 mL spray,suspension lisinopril 20 0.5 tablet PO DAILY #45 tabs 12/24/23 06/10/24 Rx mg-hydrochlorothiazide 12.5 mg tablet vardenafil 10 mg tablet 10 mg PO DAILY PRN sexual activity 03/31/24 06/10/24 Rx #10 tabs Patient hx anesthesia problems: none Family hx anesthesia problems: none Results Review: All pre-operative results and documents have been reviewed as part of the pre- operative evaluation. PMFSH Past Medical History Medical History Systolic murmur CAD (coronary artery disease) of artery bypass graft Seasonal allergies Prediabetes Non-ST elevation myocardial infarction (NSTEMI) (~06/2019) HLD (hyperlipidemia) HTN (hypertension) Kidney stones Extracted x1 1996, Lithotripsy x 1 1997, 2014, 2017-RT side Surgical History Surgical History S/P CABG x 4 (~06/2019) At [facility], last operation was 06/16/19 Cataract extraction status Both eyes Hx of eye surgery History of retinal transplant Family History Family History Father Family history of malignant neoplasm Some type of blood cancer Mother Family history of malignant neoplasm Lung cancer Social History Social History Social History: Patient lives with his Juana. She is his power insurance defense attorney. He desires to be a full code. He has 4 children. He is retired from [employer]. Patient stated he quit smoking in the 70s no alcohol are are street drugs Smoking packs per day: 1 Smoking cigarettes per day: 20.0 Years smoked: 9 Smoking pack-years: 9.00 Smoking status: Former smoker Tobacco type: cigarettes Second hand tobacco smoke exposure: No Smoking end date: 05/14/73 Alcohol intake: former Drinks per week: 2 Substance use: never Substance use type: does not use Lack of Transportation: No Lack of Food: Never True Current Housing: I Have Housing Concerned About Future Housing: No Difficulty Paying Gas/Electric Bills: No Difficulty Paying for Meds: No Education: Associate Degree Difficulty w/ Childcare or Family Care: No Living arrangements: with family Occupation/Education: retired Gender identity (if verbalized by the patient): Male Sexual Orientation (if Verbalized by the Patient): Straight or Heterosexual Spiritual care concerns: No Agree to blood products: Yes Anes - Eval Final PreProcedure Day of Procedure 06/19/24 07:15 Patient weight: normal Heart: regular rate and rhythm Lungs: clear to auscultation Airway: Mallampati scale class II Neurological: alert and oriented Last oral intake: >/= 8 hours ASA classification: III Emergent: no Anesthetic plan: proceed Anesthesia type and monitoring: general GIVS and standard monitoring Results Review: All pre-operative results and documents have been reviewed as part of the pre- operative evaluation. Informed Consent: The patient's anesthetic plan and its attendant risks and benefits were discussed with the patient/family/POA. Questions were solicited and answers provided to the satisfaction of the patient/family/POA.
--- NOTE | 2024-06-19 07:48 | PM.HPGS ---
History of Present Illness History of Present Illness Consent: Risks, benefits, and alternatives have been discussed and questions answered. Patient agrees to proceed with procedure. Chief complaint: fecal abnormalities Narrative: Jose Adair is a 79 year old male here for + cologuard, had colonoscopy but years ago Review of Systems Review of Systems: All systems reviewed & are unremarkable except as noted in HPI and below PMFSH Past Medical History Medical History Systolic murmur CAD (coronary artery disease) of artery bypass graft Seasonal allergies Prediabetes Non-ST elevation myocardial infarction (NSTEMI) (~06/2019) HLD (hyperlipidemia) HTN (hypertension) Kidney stones Extracted x1 1996, Lithotripsy x 1 1997, 2014, 2017-RT side Surgical History Surgical History S/P CABG x 4 (~06/2019) At [facility], last operation was 06/16/19 Cataract extraction status Both eyes Hx of eye surgery History of retinal transplant Family History Family History Father Family history of malignant neoplasm Some type of blood cancer Mother Family history of malignant neoplasm Lung cancer Social History Social History Social History: Patient lives with his Juana. 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 He desires to be a full code. He has 4 children. He is retired from [employer]. Patient stated he quit smoking in the 70s no alcohol are are street drugs Smoking packs per day: 1 Smoking cigarettes per day: 20.0 Years smoked: 9 Smoking pack-years: 9.00 Smoking status: Former smoker Tobacco type: cigarettes Second hand tobacco smoke exposure: No Smoking end date: 05/14/73 Alcohol intake: former Drinks per week: 2 Substance use: never Substance use type: does not use Lack of Transportation: No Lack of Food: Never True Current Housing: I Have Housing Concerned About Future Housing: No Difficulty Paying Gas/Electric Bills: No Difficulty Paying for Meds: No Education: Associate Degree Difficulty w/ Childcare or Family Care: No Living arrangements: with family Occupation/Education: retired Gender identity (if verbalized by the patient): Male Sexual Orientation (if Verbalized by the Patient): Straight or Heterosexual Spiritual care concerns: No Agree to blood products: Yes Meds Home Medications and Allergies Home Medications ?Medication ?Instructions ?Recorded ?Confirmed ?Type prednisolone acetate 1 % eye See Rx Instructions .Route .COMPLEX 06/12/19 06/10/24 History drops,suspension aspirin 81 mg tablet,delayed 81 mg PO DAILY 07/03/19 06/19/24 History release (Adult Low Dose Aspirin) metoprolol succinate 50 mg 50 mg PO DAILY 12/05/21 06/19/24 History tablet,extended release 24 hr psyllium husk 0.4 gram capsule 0.4 g PO DAILY 01/02/22 06/10/24 History (Metamucil) rosuvastatin 40 mg tablet 40 mg PO DAILY 07/04/22 06/10/24 History fluticasone propionate 50 See Rx Instructions .Route 11/16/23 06/10/24 Rx mcg/actuation nasal .COMPLEX #48 mL spray,suspension lisinopril 20 0.5 tablet PO DAILY #45 tabs 12/24/23 06/10/24 Rx mg-hydrochlorothiazide 12.5 mg tablet vardenafil 10 mg tablet 10 mg PO DAILY PRN sexual activity 03/31/24 06/10/24 Rx #10 tabs Allergies Allergy/AdvReac Type Severity Reaction Status Date / Time loratadine Allergy Unknown Eye Verified 06/19/24 06:53 Irritation sildenafil (From Viagra) AdvReac Nausea Verified 06/19/24 06:53 DECONGESTANT AdvReac Other Uncoded 06/19/24 06:53 Vital Signs Vital Signs - 24 hr 06/19/24 06:56 Temperature 97 F L Pulse Rate 67 Respiratory Rate 17 Blood Pressure 126/65 Pulse Oximetry 98 Oxygen Delivery Room Air Exam Const: General: comfortable and no acute distress HENMT: Face/Nose/Sinus: Normal nares present Eyes: General: appearance normal, both eyes and all related structures Neck: Neck: no JVD Resp: Auscultation: clear to auscultation bilaterally Cardio: Rate: regular rate Rhythm: regular rhythm GI: Inspection: non-distended GI Palp: Yes Soft to palpation Skin: General skin exam: normal color Neuro: General: gait normal Speech: normal speech Extrem: General: normal to inspection Psych: Mental Status: mental status grossly normal Assessment and Plan Assessment and plan (1) Positive colorectal cancer screening using Cologuard test: Onset Date: ~02/2024 Code(s): R19.5 - Other fecal abnormalities Status: Acute Assessment and Plan: colonoscopy
[2024-06-19 08:02] VITALS: BP 93/52; PULSE 63; RESP 20; O2SAT 97
[2024-06-19 08:12] VITALS: BP 88/54; PULSE 64; RESP 24; O2SAT 98
[2024-06-19 08:22] VITALS: BP 116/66; PULSE 62; RESP 23; O2SAT 98
== END 2024-06-19 08:40 | disposition home or self-care (01) ==
PROVIDERS: PCP Nurse Practitioner Family; Visit Provider Internal Medicine Gastroenterology
PROC: 0DJD8ZZ Inspection of Lower Intestinal Tract, Via Natural or Artificial Opening Endoscopic (ICD-10-PCS; CPT 45378; principal; 2024-06-19 08:00)
DX: D12.2 Benign neoplasm of ascending colon (principal); D12.3 Benign neoplasm of transverse colon; K64.8 Other hemorrhoids; R01.1 Cardiac murmur, unspecified; I25.10 Atherosclerotic heart disease of native coronary artery without angina pectoris; R73.03 Prediabetes; E78.5 Hyperlipidemia, unspecified; I10 Essential (primary) hypertension; I25.2 Old myocardial infarction; Z79.82 Long term (current) use of aspirin; Z98.890 Other specified postprocedural states; Z95.1 Presence of aortocoronary bypass graft; Z87.891 Personal history of nicotine dependence; Z87.442 Personal history of urinary calculi; Z80.6 Family history of leukemia; Z80.1 Family history of malignant neoplasm of trachea, bronchus and lung
CPT/HCPCS: 45385; 88305; J2704; J7120